=== PATIENT | female | born 1995 | race Two or more races ===

== ENCOUNTER 2024-11-29 21:23 | Observation (INO) | payer MEDICAID, SELFPAY ==
[2024-11-29 21:23] VITALS: TEMP 36.9
[2024-11-29 21:27] VITALS: BMI 38.0
[2024-11-29 21:36] VITALS: BP 109/59; PULSE 75
--- NOTE | 2024-11-29 21:44 | XR_ITS ---
Examination: Complete OB ultrasound greater than 14 weeks Date and time of exam: November 29, at 5 at 2200 hrs. Indications: Left-sided abdominal pain after falling 3 hours ago Findings: Viable intrauterine single fetus with single amniotic sac presentation transverse head maternal right Cardiac motion 148 BPM Placenta posterior grade 2 Umbilical cord insertion 3 vessel seen Amniotic fluid index 19.5 cm Cervix 4.5 cm Ovaries obscured by bowel gas. Composite estimated gestational age based on BPD, head circumference, abdominal circumference, femur length is 21 weeks 4 days Estimated weight 449 g. Survey of intracranial anatomy, spinal anatomy, abdominal anatomy, four-chamber heart performed with no abnormalities identified. Impression: Viable intrauterine gestation transverse presentation Placenta posterior grade 2 no abruption.
[2024-11-29 22:11] VITALS: BP 109/59; PULSE 75; RESP 18; RESP 99; TEMP 36.8
[2024-11-29 22:38] VITALS: BMI 37.5
== END 2024-11-29 23:49 | disposition home or self-care (01) ==
PROVIDERS: Admitting Provider Obstetrics & Gynecology; Visit Provider Obstetrics & Gynecology
DX: Z34.82 Encounter for supervision of other normal pregnancy, second trimester (principal); Z3A.21 21 weeks gestation of pregnancy
CPT/HCPCS: 59899; 76805

== ENCOUNTER 2025-01-12 08:45 | Observation (INO) | payer MEDICAID, SELFPAY ==
[2025-01-12] VITALS (33 sets, daily range): BP systolic 89–117; BP diastolic 51–72; PULSE 61–74; RESP 18–99; TEMP 36.7; O2SAT 97–99; BMI 35.6
--- NOTE | 2025-01-12 09:28 | XR_ITS ---
Examination: Complete OB ultrasound greater than 14 weeks Date and time of exam: January 12, 2025 1010 hours INDICATIONS: Limited care Findings: Viable intrauterine single fetus with single amniotic sac presentation cephalic Cardiac motion evident Placenta posterior grade 1 Umbilical cord insertion seen Amniotic fluid 20.2 cm spine maternal left Cervix 3.97 cm Ovaries obscured by bowel gas. Composite estimated gestational age based on BPD, head circumference, abdominal circumference, femur length is 29 weeks 6 days Estimated weight 1452 g. Survey of intracranial anatomy, spinal anatomy, abdominal anatomy, four-chamber heart performed with no abnormalities identified. Impression: Viable intrauterine gestation cephalic presentation Estimated gestational age 29 weeks 6 days.
[2025-01-12 10:12] LABS: Collection Type, Urine Clean Catch
[2025-01-12 10:19] LABS: Basophils % (Auto) 0 % (0-2.5); Eosinophils # (Auto) 0.1 Thou/mm3 (0.0-0.5); Eosinophils % (Auto) 0 % (0-10); Hematocrit 33.5 % (36.0-46.0); Hemoglobin 11.8 g/dL (12.0-16.0); Immature Granulocytes % (Auto) 1 % (0-0); Immature Granulocytes Auto 0.07 Thou/mm3 (0.00-0.00); Lymphocytes # (Auto) 1.4 Thou/mm3 (1.0-4.8); Lymphocytes % (Auto) 10 % (10-50); Mean Corpuscular HGB Conc 35.2 g/dl (31.0-37.0); Mean Corpuscular Hemoglobin 30.7 pg (25.0-35.0); Mean Corpuscular Volume 87 fL (80-100); Monocytes # (Auto) 0.7 Thou/mm3 (0.0-0.8); Monocytes % (Auto) 5 % (0-12); Neutrophils # (Auto) 11.4 Thou/mm3 (1.8-7.7); Neutrophils % (Auto) 84 % (37-80); Nucleated Red Blood Cell % 0 /100 WBC (0); Platelet Count 210 Thou/mm3 (140-440); RDW Standard Deviation 42.3 fL (36.4-46.3); Red Blood Count 3.84 Miln/mm3 (4.00-5.20); White Blood Count 13.6 Thou/mm3 (3.6-11.0)
[2025-01-12 10:21] LABS: Bilirubin,Urine Negative (Negative); Blood,Urine Trace (Negative); Clarity,Urine Clear (Clear/Hazy); Color,Urine Yellow (Lt Yel-Yel); Glucose, Urine Negative (Negative); Ketones,Urine Negative (Negative); Leukocyte Esterase,Urine Negative (Negative); Nitrite,Urine Negative (Negative); PH,Urine 7.5 (5.0-7.0); Protein,Urine Negative (Neg - Trace); RBC,Urine 5 /hpf (0-3); Squamous Epithelial Cell,Urine 2 /hpf (0-5); Urobilinogen,Urine Negative mg/dL (0.0-1.0); WBC,Urine 4 /hpf (0-5)
[2025-01-12] MEDS: RINGERS LACTATED 1000 ML 1,000 ML 999 ML IV (10:22)
[2025-01-12 10:55] LABS: Hepatitis B Surface Antigen Non Reactive (Non React); Rubella, IgG Antibody Reactive (Immune)
[2025-01-12 11:11] LABS: HIV (1&2) Antibody Rapid Non-Reactive
[2025-01-12 11:11] LABS: Syphilis Reactive (Nonreactive)
[2025-01-12 11:12] LABS: MHATP/TP-PA* See Sep Rpt
[2025-01-12 11:24] LABS: Hepatitis C Antibody Non Reactive (Non React)
[2025-01-12 11:49] LABS: Amphetamine/Metham Scrn,Ur OB Negative (Negative); Benzoylecgonine Screen, Ur OB Negative (Negative); Opiate Screen,Urine OB Negative (Negative); THC Screen,Urine OB Negative (Negative)
--- NOTE | 2025-01-12 13:06 | PC.NURSE ---
1235- HARJIT Sampson called and report given on labs and u/s pending report. Pt to follow up with Brittney quinones per Dr. George.
== END 2025-01-12 12:50 | disposition home or self-care (01) ==
PROVIDERS: Admitting Provider Obstetrics & Gynecology; Visit Provider Obstetrics & Gynecology
DX: O26.893 Other specified pregnancy related conditions, third trimester (principal); Z3A.29 29 weeks gestation of pregnancy; R10.2 Pelvic and perineal pain
CPT/HCPCS: 36415; 59025; 59899; 76805; 80307; 81001; 85025; 86703; 86762; 86780; 86803; 86850; 86900; 86901; 87086; 87340; J7120

== ENCOUNTER 2025-01-12 13:13 | Outpatient (AMB) | payer MEDICAID, SELFPAY ==
[2025-01-12 13:37] VITALS: BP 94/57; PULSE 74; RESP 14; TEMP 36.6; O2SAT 98; BMI 35.5
--- NOTE | 2025-01-12 13:37 | OBCLNT_ITS ---
Vital Signs 01/12/25 13:37 Height 1.55 m Height Method Measured Weight 85.275 kg Weight Measurement Method Standing Scale BMI 35.5 BP 94/57 L Blood Pressure Source Automatic Cuff Blood Pressure Location Left Upper Arm Position Sitting Respiration 14 Pulse 74 Pulse Source Monitor Temp 97.9 F Temp Source Oral Pulse Oximetry (%) 98 Oxygen Delivery Method Room Air Allergies/Home Meds Allergies & Medications Allergies No Known Allergies Allergy (Verified 01/12/25 13:39) Medication Reconciliation vitamins-iron fumarate 27 mg iron-folic acid 0.8 mg tablet ( Vitamin) 1 tab PO QDAY 10/29/18 [History Confirmed 01/12/25] nifedipine 10 mg capsule 10 mg PO TID 5 days #15 caps 01/12/25 [Rx Confirmed 01/12/25] Intake Visit Data Collection New Patient or Established: Established Patient (seen at [facility] within 3 years) Reason for Visit:: INITIAL CARE Seen by Clinical Staff ONLY (RN/MA): No Unemployment Insurance Director Required: No Do You Feel Safe at Home: Yes Authorities Contacted: N/A PCP or OBGYN visit in last 3 months: No Hx Now: Yes Last menstrual period: 07/01/24 Pain Present Currently: Yes Pain Location: Abdomen (LOWER ABDOMINAL ) Pain Scale Used: Hyde-Younger/Numerical Pain scale:: 5 Smoking Status Smoking Status: Never smoker Questionnaires Covid-19 Vaccine Questionnaire Has patient been vacinated for Covid-19 Have you been vacinated for Covid-19: No PHQ-9 PHQ-2 Over the last 2 weeks, how often have you been bothered by any of the following problems? 1. Little interest or pleasure in doing things: not at all 2. Feeling down, depressed, or hopeless: not at all Total score: 0 PHQ-9 3. Trouble falling or staying asleep, or sleeping too much: Not at all 4. Feeling tired or having little energy: Not at all 5. Poor appetite or overeating: Not at all 6. Feeling bad about yourself - or that you are a failure or have let yourself or your family down: Not at all 7. Trouble concentrating on things, such as reading the newspaper or watching television: Not at all 8. Moving or speaking so slowly that other people could have noticed? - Or the opposite - being so fidgety or restless that you have been moving around a lot more than usual: not at all 9. Thoughts that you would be better off or of hurting yourself in some way: Not at all Total score: 0 Source: Developed by Drs. Naveen Alex, Marcia Mcclellan, Edward Buchanan and colleagues, with an educational holly from [employer]. Depression screen completed yes Social History Living Situation History Marital Status: Single Lives With: Family Housing: House Tobacco History Smoking Status: Never smoker Second Hand Smoke Exposure: No Alcohol History Alcohol Intake: Never Domestic Abuse History Do You Feel Safe at Home: Yes Past Medical History Past Medical History Have you ever been diagnosed with any of the following: Cardiology Problems Congestive Heart Failure: No Respiratory Problems Chronic Obstructive Pulmonary Disease (COPD): No Tuberculosis: No Smoking: No Smoking Exposure: No Tobacco Use: No Stomache/Intestinal Problems Hepatitis: No Colorectal Cancer: No Genital/Urinary Problems Renal Disease: No Reproductive Problems Breast Cancer: No Previous Pregnancies: Yes Musculoskeletal Problems Bone Cancer: No Carpal Tunnel Syndrome: No Head,Eye,Nose,Throat Problems Cataracts: No Endocrine Problems Diabetes Mellitus Type 1: No Diabetes Mellitus Type 2: No Other Problems Hospitalization: Yes (CHILDBIRTH) Down Syndrome: No Developmental Delay: No Shingles: No Falls: No Blood Transfusions: No Blood Transfusion Reaction: No Anesthesia Reactions: No Organ Transplant: No Chemotherapy: No Radiation Therapy: No Hyperbaric Therapy: No MRSA: No VRSA: No Vancomycin-Resistant Enterococci: No Human Immunodeficiency Virus (HIV): No Chicken Pox: No Measles: No Mumps: No Rubella (Maltese Measles): No Pertussis: No Clostridium Difficile: No Cancer: No Cervical Cancer: No Lung Cancer: No Ovarian Cancer: No Surgical History Hysterectomy: No Thyroidectomy: No History of Present Illness HPI Narrative 29 yo for OBI. patient was sent for labor floor because screen + for RPR. treated today for PTL with IV hydration and sent home on Nifedipine 10 mg TID and bedrest. fetus active. no bleeding,no leaking. LMP 07/01/24. sono 11/29/24, fetus was 21w4, EDC 04/08/25. no PMH,NO social habit,no surgery. fetus active. labs were drawn OB Initial Visit OB Flowsheet OB Flowsheet Initial Weight: Not Recorded Date -?-?-?-?-?-?-?-?-?-?-?-?- EGA Weight Edema CTX Effacement BP Fundal ht Pres Dilation Effacement Station Visit Note Alb Glu FHR Mov 01/12/25 -?-?-?-?-?-?-?-?-?-?-?-?- 27w 6d 85.275 kg absent occasional 94/57 28 unknow n 29 yo IUP 27w6 with PTL. Treated in L&D with IV hydration. dc home on Nifedipine 10mg tid, increase fluid and rest. order 1 hr gtt, HA1c, NIPT and carrier screen. schedule MFM for anatomy scan, NUSWAB for GC/ct, ptl precaution, rtc 6 days for RPR results and f/u 145 active Menstrual History Menstrual reliability: definite Flow: normal Menstrual regularity: regular Monthly: Yes Age at menarche: 12 On control pills at conception: No Associated symptoms (LMP): Reports fatigue OB History : 3 Para: 2 # of Living Children: 2 Delivery History 1st : Child's name: NICOLAS date: 11/05/18 sex: male Delivery type: vaginal History of depression before or after : No 2nd : Child's name: ANDREA date: 04/02/20 sex: male Delivery type: vaginal History of depression before or after : No Infection History & Risk Evaluation History of STDs: none HIV risk evaluation: low risk Hepatitis B risk evaluation: low risk Patient or partner has history of Genital Herpes: No Genetic Screening & History Genetic Screening/Teratology Counseling - Includes patient, baby's father, or anyone in either family with: 1. Patient's age 35 years or older as of estimated date of delivery: No 2. Thalassemia (Sami, Irish, Mediterranean, or Background); MCV less than 80: No 3. Neural Tube Defect (Meningomyelocele, Spina Bifida, or Anencephaly): No 4. Congenital Heart Defect: No 5. Down Syndrome: No 6. Fan-Sachs (Ashkenazi Episcopal, Cajun, Yoruba [place]): No 7. Linda Disease (Ashkenazi Episcopal): No 8. Familial Dysautonomia (Ashkenazi Episcopal): No 9. Sickle Cell Disease or Trait (): No 10. Hemophilia or other blood disorders: No 11. Muscular Dystrophy: No 12. Cystic Fibrosis: No 13. Hastings's Chorea: No 14. Mental Retardation/Autism: No 15. Other inherited genetic or chromosomal disorder: No 16. Maternal Metabolic Disorder (EG,TYPE 1 Diabetes, PKU): No 17. Patient or baby's father had a child with defects not listed above: No 18. Recurrent loss or a stillbirth: No 19. Medications (including supplements, vitamins, herbs or otc drugs)/illicit/recreational drugs/alcohol since last menstrual period: No 20. Any other: No Infection History 1. Live with someone with TB or exposed to TB: No 2. Rash or viral illness since last menstrual period: No 3. Hepatitis B,C: No Other (see comments) Source: [employer] Review of Systems Review of Systems Systems Reviewed: All systems reviewed, normal except as documented Constitutional Constitutional: Reports fatigue Endocrine Endocrine: Reports fatigue Exam Narrative Physical exam: fh: 28, [id number], +RPR in Labor General Limitations: no limitations General Appearance: alert, in no apparent distress, comfortable, cooperative, healthy appearing, well developed and well groomed Head Head exam: atraumatic, normocephalic and normal inspection Resp Respiratory exam: Present normal lung sounds bilaterally Card Cardiovascular exam: Present regular rate, normal rhythm and normal heart sounds Abdominal Abdominal exam: Present soft and normal bowel sounds Extremities Extremities exam: Present normal inspection and full ROM Psych Psychiatric exam: Present normal affect and normal mood Results Objective Laboratory: +RPR, A+,ABS-, HIV-,HC-,HBSAG-, UTOX-, , platelets normal Assessment & Plan Diagnosis / Problem List (1) Encounter for supervision of normal in multigravida in second tr imester: Status: Acute Plan Continue nifedipine 10 mg 3 times daily. Prescribed iron 325 twice daily #60. Discussed labor precautions. Increase rest and fluids. Schedule anatomy scan with MFM. NuSwab plus done today for GC and chlamydia. Schedule 1 hour GTT, hemoglobin A1c, NIPT and carrier screen. Return in 1 week follow-up on positive RPR. Discussed safe sex practices and no sex for now. Additional Plan Follow Up: 6 Days (obc/f/u lab) Office Procedures OB Clinic LOC & Office Proc's Nursing/Assessment Patient Status: Established Patient OB Clinic Nursing Assessment: Medication Reconciliation, Update PMH in EMR and Vital Signs OB Clinic Coordination of Care: Complex Care and Chronic Disease 1-5, Consent,records obtained, informed consent, Education Simp Pt/Fam, Lab and Imaging orders, Results/Orders obtained and Staff clarify orders Special Needs: Heart tones Miscellaneous Interventions: Blood/Urine Collection Established Patient Charge Established Patient Point Assignment: 165 Established Patient Point Charge: EP Level 5 (160-above)
== END 2025-01-12 13:44 | disposition home or self-care (01) ==
LOC: HODSOBC 13:13
PROVIDERS: Supervising Provider Advanced Practice Midwife; Visit Provider Advanced Practice Midwife
DX: Z34.82 Encounter for supervision of other normal pregnancy, second trimester (principal); Z3A.27 27 weeks gestation of pregnancy
CPT/HCPCS: 99215; G0463

== ENCOUNTER 2025-01-18 11:37 | Outpatient (AMB) | payer MEDICAID, SELFPAY ==
[2025-01-18 11:47] VITALS: BP 113/64; PULSE 80; RESP 18; TEMP 36.2; O2SAT 97; BMI 36.1
--- NOTE | 2025-01-18 11:47 | OBCLNT_ITS ---
Vital Signs 01/18/25 11:47 Height 1.55 m Height Method Stated Weight 86.75 kg Weight Measurement Method Standing Scale BMI 36.1 BP 113/64 Blood Pressure Source Automatic Cuff Blood Pressure Location Left Upper Arm Position Sitting Respiration 18 Pulse 80 Pulse Source Monitor Temp 97.2 F Temp Source Oral Pulse Oximetry (%) 97 Oxygen Delivery Method Room Air Allergies/Home Meds Allergies & Medications Allergies No Known Allergies Allergy (Verified 01/18/25 11:48) Medication Reconciliation vitamins-iron fumarate 27 mg iron-folic acid 0.8 mg tablet ( Vitamin) 1 tab PO QDAY 10/29/18 [History Confirmed 01/18/25] azithromycin 1 gram oral packet 1 g PO QDAY chlamydia 1 day #1 ea 01/18/25 [Rx] azithromycin 500 mg tablet 500 mg PO QDAY chlamydia 1 day #2 tabs 01/18/25 [Rx] metronidazole 500 mg tablet 500 mg PO BID 7 days #14 tabs 01/18/25 [Rx] Intake Visit Data Collection New Patient or Established: Established Patient (seen at [facility] within 3 years) Reason for Visit:: obc Seen by Clinical Staff ONLY (RN/MA): No Car Starter Required: No Do You Feel Safe at Home: Yes Authorities Contacted: N/A PCP or OBGYN visit in last 3 months: Yes Date of Last PCP or OBGYN visit: 01/12/25 Hx Now: Yes Are you currently on any form of Control: No Pain Present Currently: No Pain Scale Used: Hyde-Younger/Numerical Pain scale:: 0 Smoking Status Smoking Status: Never smoker Questionnaires Covid-19 Vaccine Questionnaire Has patient been vacinated for Covid-19 Have you been vacinated for Covid-19: Yes PHQ-9 PHQ-2 Over the last 2 weeks, how often have you been bothered by any of the following problems? 1. Little interest or pleasure in doing things: not at all 2. Feeling down, depressed, or hopeless: not at all Total score: 0 PHQ-9 3. Trouble falling or staying asleep, or sleeping too much: Not at all 4. Feeling tired or having little energy: Not at all 5. Poor appetite or overeating: Not at all 6. Feeling bad about yourself - or that you are a failure or have let yourself or your family down: Not at all 7. Trouble concentrating on things, such as reading the newspaper or watching television: Not at all 8. Moving or speaking so slowly that other people could have noticed? - Or the opposite - being so fidgety or restless that you have been moving around a lot more than usual: not at all 9. Thoughts that you would be better off or of hurting yourself in some way: Not at all Total score: 0 If you checked off any problems, how difficult have these problems made it for you to do your work, take care of things at home, or get along with other people?: not difficult at all Source: Developed by Drs. Naveen Alex, Marcia Mcclellan, Edward Buchanan and colleagues, with an educational holly from [employer]. 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 at Home: Yes Past Medical History Past Medical History Have you ever been diagnosed with any of the following: Cardiology Problems Congestive Heart Failure: No Respiratory Problems Chronic Obstructive Pulmonary Disease (COPD): No Tuberculosis: No Smoking: No Smoking Exposure: No Tobacco Use: No Stomache/Intestinal Problems Hepatitis: No Colorectal Cancer: No Genital/Urinary Problems Renal Disease: No Reproductive Problems Breast Cancer: No Previous Pregnancies: Yes Musculoskeletal Problems Bone Cancer: No Carpal Tunnel Syndrome: No Head,Eye,Nose,Throat Problems Cataracts: No Endocrine Problems Diabetes Mellitus Type 1: No Diabetes Mellitus Type 2: No Other Problems Hospitalization: Yes (CHILDBIRTH) Down Syndrome: No Developmental Delay: No Shingles: No Falls: No Blood Transfusions: No Blood Transfusion Reaction: No Anesthesia Reactions: No Organ Transplant: No Chemotherapy: No Radiation Therapy: No Hyperbaric Therapy: No MRSA: No VRSA: No Vancomycin-Resistant Enterococci: No Human Immunodeficiency Virus (HIV): No Chicken Pox: No Measles: No Mumps: No Rubella (Citizen Of [place] Measles): No Pertussis: No Clostridium Difficile: No Cancer: No Cervical Cancer: No Lung Cancer: No Ovarian Cancer: No Surgical History Hysterectomy: No Thyroidectomy: No Care OB Visit Log OB Flowsheet Initial Weight: Not Recorded Date -?-?-?-?-?-?-?-?-?-?-?-?- EGA Weight Edema CTX Effacement BP Fundal ht Pres Dilation Effacement Station Visit Note Alb Glu FHR Mov 01/12/25 -?-?-?-?-?-?-?-?-?-?-?-?- 27w 6d 85.275 kg absent occasional 94/57 28 unknow n 29 yo IUP 27w6 with PTL. Treated in L&D with IV hydration. dc home on Nifedipine 10mg tid, increase fluid and rest. order 1 hr gtt, HA1c, NIPT and carrier screen. schedule MFM for anatomy scan, NUSWAB for GC/ct, ptl precaution, rtc 6 days for RPR results and f/u 145 active 01/18/25 -?-?-?-?-?-?-?-?-?-?-?-?- 28w 5d 86.75 kg absent absent 113/64 29 for OB, partner is in [place], fetus active, compliance with Nifedipine. Denies UC today. discuss +RPR, titer 1:16, +TPA. patient denies previous hx of syphilis. health dept aware. Bicollin 2.4 mu IM. gave patient handout. discuss partner treatment, no sex, discuss safe sex, review ptl precaution, ihr gtt results pending, increase fluid, rtc 1 week Bicillin 2.4#2, schedule mfm appointment for OBC, partner is in [facility], fetus active, compliance with Nifedipine. Denies UC today. discuss +RPR, titer 1:16, +TPA. patient denies previous hx of syphilis. health dept aware. Bicollin 2.4 mu IM. gave patient handout. discuss partner treatment, no sex, discuss safe sex, review ptl precaution, ihr gtt results pending, increase fluid, rtc 1 week Bicillin 2.4#2, schedule mfm appointmentpatient tried to fainted after Bicillin 2.4 141 active PAVEL Calculator Estimated Delivery Date Method Current WG Current Estimate 04/07/25 Ultrasound #1 28w 5d Results Objective Laboratory: RPR+ Titer: 1:16 TPA+ Assessment & Plan Diagnosis / Problem List (1) Encounter for supervision of normal in multigravida in second trimester: Status: Acute (2) Syphilis affecting in second trimester: Status: Acute (3) Chlamydia: Status: Acute Plan: called patient with + chlamydia and BV results, rx for flagyl 500 bid x7 and Azithromax 1 gm to patient, ordered 1 gm Azithromax 1 gm for patient partner. instrucyted to give to partner. no sex/safe sex Plan no sex. discuss +RPR and treatment, pt handout for + stphilis given to patient in kyrgyz, stressed importance of weekly visit x3 for 3 bicillin 2.4, and advised importance of partner getting treated for + RPR. No sex, safe sex, MFM sono pending, ptl precaution, fluids. rtc 1 week Additional Plan Follow Up: 1 Week (bicillin 2.4 and OBC) Instructions: Syphilis Office Procedures OB Clinic LOC & Office Proc's Nursing/Assessment Patient Status: Established Patient OB Clinic Nursing Assessment: BP Monitoring, Medication Reconciliation, Update PMH in EMR and Vital Signs OB Clinic Coordination of Care: Consent,records obtained, informed consent, Education Simp Pt/Fam, Results/Orders obtained and Staff clarify orders Special Needs: Heart tones Established Patient Charge Established Patient Point Assignment: 110 Established Patient Point Charge: EP Level 3 (80-115) Injection/Vaccine Admin SQ Im Injection: Yes Office Meds penicillin G benzathine 2,400,000 unit/4 mL intramuscular syringe Performing Provider: Elizabeth Sampson CNM Performing Location: [facility] Administered by: Jacinta Branham MA on 01/18/25 13:25 Dose Route Admin Location Dispensed Lot Number Expiration Date [facility] Contract Negotiation Manager 2.4 mmu IM LG 4 mL [id number] 04/16/27 31470-163-92 Intervention Insights Comments: PT WIATED 15 MIN , PATIENT DID FEEL LIGHT HEADED PROVIDER AWARE AND PATIENT WAITED WITH PROVDER
--- NOTE | 2025-01-18 11:58 | AMB.OBVISIT ---
Vital Signs 01/18/25 11:47 Height 1.55 m Height Method Stated Weight 86.75 kg Weight Measurement Method Standing Scale BMI 36.1 BP 113/64 Blood Pressure Source Automatic Cuff Blood Pressure Location Left Upper Arm Position Sitting Respiration 18 Pulse 80 Pulse Source Monitor Temp 97.2 F Temp Source Oral Pulse Oximetry (%) 97 Oxygen Delivery Method Room Air Allergies/Home Meds Allergies & Medications Allergies No Known Allergies Allergy (Verified 01/18/25 11:48) Medication Reconciliation vitamins-iron fumarate 27 mg iron-folic acid 0.8 mg tablet ( Vitamin) 1 tab PO QDAY 10/29/18 [History Confirmed 01/18/25] Intake Visit Data Collection Do You Feel Safe at Home: Yes Smoking Status Smoking Status: Never smoker Questionnaires Covid-19 Vaccine Questionnaire Has patient been vacinated for Covid-19 Have you been vacinated for Covid-19: Yes PHQ-9 PHQ-2 Over the last 2 weeks, how often have you been bothered by any of the following problems? 1. Little interest or pleasure in doing things: not at all PHQ-9 3. Trouble falling or staying asleep, or sleeping too much: Not at all 4. Feeling tired or having little energy: Not at all 5. Poor appetite or overeating: Not at all 6. Feeling bad about yourself - or that you are a failure or have let yourself or your family down: Not at all 7. Trouble concentrating on things, such as reading the newspaper or watching television: Not at all 8. Moving or speaking so slowly that other people could have noticed? - Or the opposite - being so fidgety or restless that you have been moving around a lot more than usual: not at all Total score: 0 If you checked off any problems, how difficult have these problems made it for you to do your work, take care of things at home, or get along with other people?: not difficult at all Source: Developed by Drs. Naveen Alex, Marcia Mcclellan, Edward Buchanan and colleagues, with an educational holly from [employer]. 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 at Home: Yes Past Medical History Past Medical History Have you ever been diagnosed with any of the following: Cardiology Problems Congestive Heart Failure: No Respiratory Problems Chronic Obstructive Pulmonary Disease (COPD): No Tuberculosis: No Smoking: No Smoking Exposure: No Tobacco Use: No Stomache/Intestinal Problems Hepatitis: No Colorectal Cancer: No Genital/Urinary Problems Renal Disease: No Reproductive Problems Breast Cancer: No Previous Pregnancies: Yes Musculoskeletal Problems Bone Cancer: No Carpal Tunnel Syndrome: No Head,Eye,Nose,Throat Problems Cataracts: No Endocrine Problems Diabetes Mellitus Type 1: No Diabetes Mellitus Type 2: No Other Problems Hospitalization: Yes (CHILDBIRTH) Down Syndrome: No Developmental Delay: No Shingles: No Falls: No Blood Transfusions: No Blood Transfusion Reaction: No Anesthesia Reactions: No Organ Transplant: No Chemotherapy: No Radiation Therapy: No Hyperbaric Therapy: No MRSA: No VRSA: No Vancomycin-Resistant Enterococci: No Human Immunodeficiency Virus (HIV): No Chicken Pox: No Measles: No Mumps: No Rubella (Yi Measles): No Pertussis: No Clostridium Difficile: No Cancer: No Cervical Cancer: No Lung Cancer: No Ovarian Cancer: No Surgical History Hysterectomy: No Thyroidectomy: No Care OB Visit Log OB Flowsheet Initial Weight: Not Recorded Date <del>?</del> EGA Weight Edema CTX Effacement BP Fundal ht Pres Dilation Effacement Station Visit Note Alb Glu FHR Mov 01/12/25 <del>?</del> 27w 6d 85.275 kg absent occasional 94/57 28 unknown 29 yo IUP 27w6 with PTL. Treated in L&D with IV hydration. dc home on Nifedipine 10mg tid, increase fluid and rest. order 1 hr gtt, HA1c, NIPT and carrier screen. schedule MFM for anatomy scan, NUSWAB for GC/ct, ptl precaution, rtc 6 days for RPR results and f/u 145 active PAVEL Calculator Estimated Delivery Date Method Current WG Current Estimate 04/07/25 Ultrasound #1 28w 5d Assessment & Plan Additional Plan Instructions: Syphilis Office Procedures OB Clinic LOC & Office Proc's Nursing/Assessment Patient Status: Established Patient OB Clinic Nursing Assessment: BP Monitoring, Medication Reconciliation, Update PMH in EMR and Vital Signs OB Clinic Coordination of Care: Consent,records obtained, informed consent, Education Simp Pt/Fam, Results/Orders obtained and Staff clarify orders Special Needs: Heart tones Established Patient Charge Established Patient Point Assignment: 110 Established Patient Point Charge: EP Level 3 (80-115)
== END 2025-01-18 12:02 | disposition home or self-care (01) ==
LOC: HODSOBC 11:37
PROVIDERS: Supervising Provider Advanced Practice Midwife; Visit Provider Advanced Practice Midwife
DX: O09.893 Supervision of other high risk pregnancies, third trimester (principal); Z3A.28 28 weeks gestation of pregnancy; O98.113 Syphilis complicating pregnancy, third trimester; O98.313 Other infections with a predominantly sexual mode of transmission complicating pregnancy, third trimester; A56.8 Sexually transmitted chlamydial infection of other sites
CPT/HCPCS: 81001; 96372; 99213; J0561; G0463

== ENCOUNTER 2025-01-25 13:04 | Outpatient (AMB) | payer MEDICAID, SELFPAY ==
--- NOTE | 2025-01-25 13:18 | OBCLNT_ITS ---
Vital Signs 01/25/25 13:22 Height 1.55 m Height Method Stated Weight 86.75 kg Weight Measurement Method Standing Scale BMI 36.1 BP 110/67 Blood Pressure Source Automatic Cuff Blood Pressure Location Left Upper Arm Position Sitting Respiration 16 Pulse 77 Pulse Source Monitor Temp 97.5 F Temp Source Oral Pulse Oximetry (%) 97 Oxygen Delivery Method Room Air Allergies/Home Meds Allergies & Medications Allergies No Known Allergies Allergy (Verified 02/01/25 15:57) Medication Reconciliation vitamins-iron fumarate 27 mg iron-folic acid 0.8 mg tablet ( Vitamin) 1 tab PO QDAY 10/29/18 [History Confirmed 02/01/25] Intake Visit Data Collection New Patient or Established: Established Patient (seen at [facility] within 3 years) Reason for Visit:: CARE Seen by Clinical Staff ONLY (RN/MA): No Mirror Fabrication Supervisor Required: No Do You Feel Safe at Home: Yes Authorities Contacted: N/A PCP or OBGYN visit in last 3 months: Yes Hx Now: Yes Are you currently on any form of Control: No Pain Present Currently: No Pain Scale Used: Hyde-Youngre/Numerical Pain scale:: 0 Smoking Status Smoking Status: Never smoker Questionnaires Covid-19 Vaccine Questionnaire Has patient been vacinated for Covid-19 Have you been vacinated for Covid-19: No PHQ-9 PHQ-2 Over the last 2 weeks, how often have you been bothered by any of the following problems? 1. Little interest or pleasure in doing things: not at all 2. Feeling down, depressed, or hopeless: not at all Total score: 0 PHQ-9 3. Trouble falling or staying asleep, or sleeping too much: Not at all 4. Feeling tired or having little energy: Not at all 5. Poor appetite or overeating: Not at all 6. Feeling bad about yourself - or that you are a failure or have let yourself or your family down: Not at all 7. Trouble concentrating on things, such as reading the newspaper or watching television: Not at all 8. Moving or speaking so slowly that other people could have noticed? - Or the opposite - being so fidgety or restless that you have been moving around a lot more than usual: not at all 9. Thoughts that you would be better off or of hurting yourself in some way: Not at all Total score: 0 Source: Developed by Drs. Naveen Alex, Marcia Mcclellan, Edward Buchanan and colleagues, with an educational holly from [employer]. 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 Past Medical History: No Hx Neurological Disorders, No Hx Breast Cancer, No Hx Cardiac Disorders, No Hx Cancer, No Hx Blood Disorders, No Hx Gastrointestinal Disorders, No Hx Renal Disease, No Hx Diabetes Mellitus Type 1, No Hx Diabetes Mellitus Type 2, No Hx Tubal Ligation and No Hx Hysterectomy Care OB Visit Log OB Flowsheet Initial Weight: Not Recorded Date -?-?-?-?-?-?-?-?-?-?-?-?- EGA Weight BP Alb Glu CTX Pres Fundal ht FHR Mov Dilation Station Effacement Hx Notes Visit Note 01/12/25 -?-?-?-?-?-?-?-?-?-?-?-?- 27w 6d 85.275 kg 94/57 occasional unknown 28 1 45 active 29 yo IUP 27w6 with PTL. Treated in L&D with IV hydration. dc home on Nifedipine 10mg tid, increase fluid and rest. order 1 hr gtt, HA1c, NIPT and carrier screen. schedule MFM for anatomy scan, NUSWAB for GC/ct, ptl precaution, rtc 6 days for RPR results and f/u 01/18/25 -?-?-?-?-?-?-?-?-?-?-?-?- 28w 5d 86.75 kg 113/64 absent 29 141 act jake for OBC, partner is in [place], fetus active, compliance with Nifedipine. Denies UC today. discuss +RPR, titer 1:16, +TPA. patient denies previous hx of syphilis. health dept aware. Bicollin 2.4 mu IM. gave patient handout. discuss partner treatment, no sex, discuss safe sex, review ptl precaution, ihr gtt results pending, increase fluid, rtc 1 week Bicillin 2.4#2, schedule mfm appointment for OBC, partner is in [place], fetus active, compliance with Nifedipine. Denies UC today. discuss +RPR, titer 1:16, +TPA. patient denies previous hx of syphilis. health dept aware. Bicollin 2.4 mu IM. gave patient handout. discuss partner treatment, no sex, discuss safe sex, review ptl precaution, ihr gtt results pending, increase fluid, rtc 1 week Bicillin 2.4#2, schedule mfm appointmentpatient tried to fainted after Bicillin 2.4 01/25/25 -?-?-?-?-?-?-?-?-?-?-?-?- 29w 5d 86.75 kg 110/67 absent cephalic 30 141 active fetus active, reports compliance with zithromax 1 gm PM, partner has not notified partner. NO sex/safe sex reviewed, [facility], increase fluid and rest, ptl precaution. flagyl 500 bid x7. rtc 1 week bicillin 2.4 #3 02/01/25 -?-?-?-?-?-?-?-?-?-?-?-?- 30w 5d 88.904 kg 105/62 absent cephalic 32 143 active Reports good movement. Denies labor complaints. Patient is not sexually active. Patient reports that she when her is back in the house she will have him get tested and treated for both syphilis and chlamydia. Denies labor complaints. Discussed NIPT with patient. Patient got Tdap last visit. MFM visit is still pending insurance. Return in 2 weeks visit Reports good movement. Denies labor complaints. Patient is not sexually active. Patient reports that she when her is back in the house she will have him get tested and treated for both syphilis and chlamydia. Denies labor complaints. Discussed NIPT with patient. Patient got Tdap last visit. MFM visit is still pending insurance. Return in 2 weeks OBC. Bicillin 2.4U IM #3 today, contineu to practice safe sex and condom use PAVEL Calculator Estimated Delivery Date Method Current WG Current Estimate 04/07/25 Ultrasound #1 30w 6d Comments: 29 yo . sono: 16: 21w4. EDC 04/13/25. +RPR: +TPA: titer: 1:16 Treated x 2 bicillin 2.4. next TX is 1 week. +CT/GC-: tx with zithromax 1 gm. + BV: treated with flagyl. A+,ABS-,, RUB imm, hbsag-,hiv-,HC-,UT- Notes Visit Date: 01/25/25 Last Updated by: Elizabeth Sampson CNM 29 yo , Office Procedures OB Clinic LOC & Office Proc's Nursing/Assessment Patient Status: Established Patient OB Clinic Nursing Assessment: Medication Reconciliation, Update PMH in EMR and Vital Signs OB Clinic Coordination of Care: Complex Care and Chronic Disease 1-5, Consent,records obtained, informed consent, Education Simp Pt/Fam, Lab and Imaging orders, Results/Orders obtained and Staff clarify orders Special Needs: Heart tones Miscellaneous Interventions: Blood/Urine Collection Established Patient Charge Established Patient Point Assignment: 165 Established Patient Point Charge: EP Level 5 (160-above) Injection/Vaccine Admin SQ Im Injection: Yes Admin 1st Vaccine: Yes Office Meds Bicillin L-A 2,400,000 unit/4 mL intramuscular syringe Performing Provider: Elizabeth Sampson CNM Performing Location: [facility] Administered by: Jacinta Branham MA on 01/25/25 13:56 Dose Route Admin Location Dispensed Lot Number Expiration Date [facility] Field Care Manager 2.4 unit IM RG 4 mL [id number] 04/16/27 88201-433-96 [place] [employer] Immunizations diphth,pertus(acell),tetanus 2.5 Lf unit-8 mcg-5 Lf/0.5mL IM syringe Performing Provider: Elizabeth Sampson CNM Performing Location: [facility] Administered by: Jacinta Branham MA on 01/25/25 13:56 Dose Route Admin Location Dispensed Lot Number Expiration Date [facility] Field Care Manager 0.5 mL IM Right Deltoid 0.5 mL [id number] 12/05/26 29494-641-[facility] Given Date VIS Provided VIS Publication Date 01/25/25 Single Vaccine 24 Eligibility Eligibility Date Funding Source Public Non-[facility] Assessment & Plan Diagnosis / Problem List (1) Encounter for supervision of normal in multigravida in second trimester: Status: Acute (2) Syphilis affecting in second trimester: Status: Acute Plan TDAP and bicillin 2.4 IM today. re-order flagyl 500 bid x7. no sex, urged patient to notify partner so he can get treated. discuss safe sex. ptl precaution, increase fluid,rest. MFM appointment pending approval/[facility]. RTC 1 week Bicillin 2.4 #3 Additional Plan Follow Up: 1 Week (bicillin 2.4 #3 and OBC)
[2025-01-25 13:22] VITALS: BP 110/67; PULSE 77; RESP 16; TEMP 36.4; O2SAT 97; BMI 36.1
[2025-01-25 14:18] LABS: Bilirubin,Urine Clinitek Negative (Negative); Blood,Urine Clinitek Trace-intact (Negative); Glucose, Urine Clinitek Negative (Negative); Ketones,Urine Clinitek Negative (Negative); Leukocyte Esterase,Urine Clin Negative (Negative); Nitrite,Urine Clinitek Negative (Negative); PH,Urine Clinitek 6.5 (5.0-7.0); Protein,Urine Clinitek Negative (Neg - Trace); Specific Gravity,Urine Clin 1.025 (1.001-1.030); Urobilinogen,Urine Clinitek 0.2 mg/dL (0.0-1.0)
== END 2025-01-25 13:55 | disposition home or self-care (01) ==
LOC: HODSOBC 13:04
PROVIDERS: PCP Advanced Practice Midwife; Referring Provider Advanced Practice Midwife; Supervising Provider Obstetrics & Gynecology; Visit Provider Advanced Practice Midwife
DX: O09.893 Supervision of other high risk pregnancies, third trimester (principal); Z3A.30 30 weeks gestation of pregnancy; O98.113 Syphilis complicating pregnancy, third trimester; A53.9 Syphilis, unspecified; Z23 Encounter for immunization
CPT/HCPCS: 81001; 90471; 90472; 90715; 96372; 99215; J0561; G0463

== ENCOUNTER 2025-02-01 15:49 | Outpatient (AMB) | payer MEDICAID, SELFPAY ==
[2025-02-01 15:56] VITALS: BP 105/62; PULSE 74; RESP 18; TEMP 36.2; O2SAT 97; BMI 37.0
--- NOTE | 2025-02-01 15:56 | OBCLNT_ITS ---
Vital Signs 02/01/25 15:56 Height 1.55 m Height Method Stated Weight 88.904 kg Weight Measurement Method Standing Scale BMI 37.0 BP 105/62 Blood Pressure Source Automatic Cuff Blood Pressure Location Left Upper Arm Position Sitting Respiration 18 Pulse 74 Pulse Source Monitor Temp 97.2 F Temp Source Oral Pulse Oximetry (%) 97 Oxygen Delivery Method Room Air Allergies/Home Meds Allergies & Medications Allergies No Known Allergies Allergy (Verified 02/01/25 15:57) Medication Reconciliation vitamins-iron fumarate 27 mg iron-folic acid 0.8 mg tablet ( Vitamin) 1 tab PO QDAY 10/29/18 [History Confirmed 02/01/25] Intake Visit Data Collection New Patient or Established: Established Patient (seen at [facility] within 3 years) Reason for Visit:: OBC/Nataly 2.4 Seen by Clinical Staff ONLY (RN/MA): No Volunteer Fire 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 1. Little interest or pleasure in doing things: not at all 2. Feeling down, depressed, or hopeless: not at all Total score: 0 PHQ-9 3. Trouble falling or staying asleep, or sleeping too much: Not at all 4. Feeling tired or having little energy: Not at all 5. Poor appetite or overeating: Not at all 6. Feeling bad about yourself - or that you are a failure or have let yourself or your family down: Not at all 7. Trouble concentrating on things, such as reading the newspaper or watching television: Not at all 8. Moving or speaking so slowly that other people could have noticed? - Or the opposite - being so fidgety or restless that you have been moving around a lot more than usual: not at all 9. Thoughts that you would be better off or of hurting yourself in some way: Not at all Total score: 0 If you checked off any problems, how difficult have these problems made it for you to do your work, take care of things at home, or get along with other people?: not difficult at all Source: Developed by Drs. Naveen Alex, Marcia Mcclellan, Edward Buchanan and colleagues, with an educational holly from [employer]. 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 Past Medical History: No Hx Neurological Disorders, No Hx Breast Cancer, No Hx Cardiac Disorders, No Hx Cancer, No Hx Blood Disorders, No Hx Gastrointestinal Disorders, No Hx Renal Disease, No Hx Diabetes Mellitus Type 1, No Hx Diabetes Mellitus Type 2, No Hx Tubal Ligation and No Hx Hysterectomy Care OB Visit Log OB Flowsheet Initial Weight: Not Recorded Date -?-?-?-?-?-?-?-?-?-?-?-?- EGA Weight Edema CTX Effacement BP Fundal ht Pres Dilation Effacement Station Visit Note Alb Glu FHR Mov 01/12/25 -?-?-?-?-?-?-?-?-?-?-?-?- 27w 6d 85.275 kg absent occasional 94/57 28 unknow n 29 yo IUP 27w6 with PTL. Treated in L&D with IV hydration. dc home on Nifedipine 10mg tid, increase fluid and rest. order 1 hr gtt, HA1c, NIPT and carrier screen. schedule MFM for anatomy scan, NUSWAB for GC/ct, ptl precaution, rtc 6 days for RPR results and f/u 145 active 01/18/25 -?-?-?-?-?-?-?-?-?-?-?-?- 28w 5d 86.75 kg absent absent 113/64 29 for OBC, partner is in [place], fetus active, compliance with Nifedipine. Denies UC today. discuss +RPR, titer 1:16, +TPA. patient denies previous hx of syphilis. health dept aware. Bicollin 2.4 mu IM. gave patient handout. discuss partner treatment, no sex, discuss safe sex, review ptl precaution, ihr gtt results pending, increase fluid, rtc 1 week Bicillin 2.4#2, schedule mfm appointment for OBC, partner is in [place], fetus active, compliance with Nifedipine. Denies UC today. discuss +RPR, titer 1:16, +TPA. patient denies previous hx of syphilis. health dept aware. Bicollin 2.4 mu IM. gave patient handout. discuss partner treatment, no sex, discuss safe sex, review ptl precaution, ihr gtt results pending, increase fluid, rtc 1 week Bicillin 2.4#2, schedule mfm appointmentpatient tried to fainted after Bicillin 2.4 141 active 01/25/25 -?-?-?-?-?-?-?-?-?-?-?-?- 29w 5d 86.75 kg absent absent 110/67 30 cephalic fetus active, reports compliance with zithromax 1 gm PM, partner has not notified partner. NO sex/safe sex reviewed, MFM appointment pending, [facility], increase fluid and rest, ptl precaution. flagyl 500 bid x7. rtc 1 week bicillin 2.4 #3 141 active 02/01/25 -?-?-?-?-?-?-?-?-?-?-?--?- 30w 5d 88.904 kg absent absent 105/62 32 cephalic Reports good movement. Denies labor complaints. Patient is not sexually active. Patient reports that she when her is back in the house she will have him get tested and treated for both syphilis and chlamydia. Denies labor complaints. Discussed NIPT with patient. Patient got Tdap last visit. MFM visit is still pending insurance. Return in 2 weeks visit Reports good movement. Denies labor complaints. Patient is not sexually active. Patient reports that she when her is back in the house she will have him get tested and treated for both syphilis and chlamydia. Denies labor complaints. Discussed NIPT with patient. Patient got Tdap last visit. MFM visit is still pending insurance. Return in 2 weeks OBC. Bicillin 2.4U IM #3 today, contineu to practice safe sex and condom use 143 active PAVEL Calculator Estimated Delivery Date Method Current WG Current Estimate 04/07/25 Ultrasound #1 30w 5d Notes Visit Date: 01/25/25 Last Updated by: Elizabeth Sampson CNM 29 yo , Office Procedures OB Clinic LOC & Office Proc's Nursing/Assessment Patient Status: Established Patient OB Clinic Nursing Assessment: Medication Reconciliation, Update PMH in EMR and Vital Signs OB Clinic Coordination of Care: Education Complex Pt/Fam, Consent,records obtained, informed consent, Education Simp Pt/Fam and Staff clarify orders Special Needs: Heart tones Established Patient Charge Established Patient Point Assignment: 110 Established Patient Point Charge: EP Level 3 (80-115) Injection/Vaccine Admin SQ Im Injection: Yes Office Meds Bicillin L-A 2,400,000 unit/4 mL intramuscular syringe Performing Provider: Elizabeth Sampson CNM Performing Location: [facility] Administered by: Erin Diaz MA on 02/01/25 16:36 Dose Route Admin Location Dispensed Lot Number Expiration Date [facility] Formula Maker 2.4 unit IM RIGHT GLUTE 4 mL [id number] 10/17/24 64298-169-56 [employer] Assessment & Plan Diagnosis / Problem List (1) Syphilis affecting in second trimester: Status: Acute (2) Encounter for supervision of normal in multigravida in second trimester: Status: Acute Plan Bicillin 2.4 U IM #3 today. safe sex practice reviewed, remind patient to have partner treated for both syphilis and chlamydia. PTL precaution. mfm sono pending. continue PNV. rtc 2 week Additional Plan Follow Up: 2 Weeks (obc)
== END 2025-02-01 16:01 | disposition home or self-care (01) ==
LOC: HODSOBC 15:49
PROVIDERS: PCP Advanced Practice Midwife; Referring Provider Advanced Practice Midwife; Supervising Provider Obstetrics & Gynecology; Visit Provider Advanced Practice Midwife
DX: O09.893 Supervision of other high risk pregnancies, third trimester (principal); Z3A.30 30 weeks gestation of pregnancy; O98.113 Syphilis complicating pregnancy, third trimester; A53.9 Syphilis, unspecified
CPT/HCPCS: 90471; 96372; 99213; J0561; G0463

== ENCOUNTER 2025-02-23 16:00 | Outpatient (AMB) | payer MEDICAID, SELFPAY ==
[2025-02-23 16:16] VITALS: BP 106/67; PULSE 73; RESP 17; TEMP 36.6; O2SAT 98; BMI 36.8
--- NOTE | 2025-02-23 16:16 | AMB.OBVISIT ---
Vital Signs 02/23/25 16:16 Height 1.55 m Height Method Stated Weight 88.451 kg Weight Measurement Method Standing Scale BMI 36.8 BP 106/67 Blood Pressure Source Automatic Cuff Blood Pressure Location Right Upper Arm Position Sitting Respiration 17 Pulse 73 Pulse Source Monitor Temp 97.8 F Temp Source Temporal Artery Scan Pulse Oximetry (%) 98 Oxygen Delivery Method Room Air Allergies/Home Meds Allergies & Medications Allergies No Known Allergies Allergy (Verified 02/01/25 15:57) Intake Visit Data Collection New Patient or Established: Established Patient (seen at [facility] within 3 years) Reason for Visit:: OBC Seen by Clinical Staff ONLY (RN/MA): No Graduate Teaching Assistant Required: No Do You Feel Safe at Home: Yes Authorities Contacted: N/A PCP or OBGYN visit in last 3 months: Yes Date of Last PCP or OBGYN visit: 02/01/25 Hx Now: Yes Pain Present Currently: Yes Pain Location: Head Pain Scale Used: Hyde-Younger/Numerical Pain scale:: 7 Smoking Status Smoking Status: Never smoker Questionnaires Covid-19 Vaccine Questionnaire Has patient been vacinated for Covid-19 Have you been vacinated for Covid-19: Yes PHQ-9 PHQ-2 Over the last 2 weeks, how often have you been bothered by any of the following problems? 1. Little interest or pleasure in doing things: several days 2. Feeling down, depressed, or hopeless: several days Total score: 2 PHQ-9 3. Trouble falling or staying asleep, or sleeping too much: Not at all 4. Feeling tired or having little energy: Not at all 5. Poor appetite or overeating: Not at all 6. Feeling bad about yourself - or that you are a failure or have let yourself or your family down: Not at all 7. Trouble concentrating on things, such as reading the newspaper or watching television: Not at all 8. Moving or speaking so slowly that other people could have noticed? - Or the opposite - being so fidgety or restless that you have been moving around a lot more than usual: not at all 9. Thoughts that you would be better off or of hurting yourself in some way: Not at all Total score: 2 If you checked off any problems, how difficult have these problems made it for you to do your work, take care of things at home, or get along with other people?: not difficult at all Source: Developed by Drs. Naveen Alex, Marcia Mcclellan, Edward Buchanan and colleagues, with an educational holly from [employer]. 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 Treated in L&D with IV hydration. dc home on Nifedipine 10mg tid, increase fluid and rest. order 1 hr gtt, HA1c, NIPT and carrier screen. schedule MFM for anatomy scan, NUSWAB for GC/ct, ptl precaution, rtc 6 days for RPR results and f/u 01/18/25 <del>?</del> 28w 5d 86.75 kg 113/64 absent 29 141 active for OBC, partner is in [place], fetus active, compliance with Nifedipine. Denies UC today. discuss +RPR, titer 1:16, +TPA. patient denies previous hx of syphilis. health dept aware. Bicollin 2.4 mu IM. gave patient handout. discuss partner treatment, no sex, discuss safe sex, review ptl precaution, ihr gtt results pending, increase fluid, rtc 1 week Bicillin 2.4#2, schedule mfm appointment for OBC, partner is in [place], fetus active, compliance with Nifedipine. Denies UC today. discuss +RPR, titer 1:16, +TPA. patient denies previous hx of syphilis. health dept aware. Bicollin 2.4 mu IM. gave patient handout. discuss partner treatment, no sex, discuss safe sex, review ptl precaution, ihr gtt results pending, increase fluid, rtc 1 week Bicillin 2.4#2, schedule mfm appointmentpatient tried to fainted after Bicillin 2.4 01/25/25 <del>?</del> 29w 5d 86.75 kg 110/67 absent cephalic 30 141 active fetus active, reports compliance with zithromax 1 gm PM, partner has not notified partner. NO sex/safe sex reviewed, MFM appointment pending, [facility], increase fluid and rest, ptl precaution. flagyl 500 bid x7. rtc 1 week bicillin 2.4 #3 02/01/25 <del>?</del> 30w 5d 88.904 kg 105/62 absent cephalic 32 143 active Reports good movement. Denies labor complaints. Patient is not sexually active. Patient reports that she when her is back in the house she will have him get tested and treated for both syphilis and chlamydia. Denies labor complaints. Discussed NIPT with patient. Patient got Tdap last visit. MFM visit is still pending insurance. Return in 2 weeks visit Reports good movement. Denies labor complaints. Patient is not sexually active. Patient reports that she when her is back in the house she will have him get tested and treated for both syphilis and chlamydia. Denies labor complaints. Discussed NIPT with patient. Patient got Tdap last visit. MFM visit is still pending insurance. Return in 2 weeks OBC. Bicillin 2.4U IM #3 today, contineu to practice safe sex and condom use 02/23/25 <del>?</del> 33w 6d 88.451 kg 106/67 occasional cephalic 33 145 active reports good movement. denies LOF,VB,UC, mfm appointment 02/26 GC/CT LIYA today, get 3rd tri lab, discuss fkc bid.discuss PTL precaution, increase fluid. keep mfm appt 02/26, rtc 1 week obc PAVEL Calculator Estimated Delivery Date Method Current WG Current Estimate 04/07/25 Ultrasound #1 33w 6d Notes Visit Date: 02/23/25 Last Updated by: Elizabeth Sampson CNM 29 yo . no dates. sono 11/29/24: IUP 21w4. EDC: 04/07/25. A+,abs-, rpr;;Reactive,titer: 1:16. treated with Bicillin 2.4 s3, partner not treated. GC-/CT+. treated with zithromax. BV+/tx with flagyl, hbsag-,HIV-,HC-. NIPT and carrier screen-. treated with nifedipine 10mg tid for PTL Visit Date: 01/25/25 Last Updated by: Elizabeth Sampson CNM 29 yo , Office Procedures OB Clinic LOC & Office Proc's Nursing/Assessment Patient Status: Established Patient OB Clinic Nursing Assessment: Medication Reconciliation, Update PMH in EMR and Vital Signs OB Clinic Coordination of Care: Complex Care and Chronic Disease 1-5, Consent,records obtained, informed consent, Education Simp Pt/Fam, Lab and Imaging orders and Staff clarify orders Special Needs: Heart tones Miscellaneous Interventions: Culture Specimen Collection Established Patient Charge Established Patient Point Assignment: 145 Established Patient Point Charge: EP Level 4 (120-155) Assessment & Plan Diagnosis / Problem List (1) Chronic candidiasis of vulva and vagina: Status: Acute (2) Chlamydia: Status: Acute (3) Encounter for supervision of high risk in third trimester, antepartum: Status: Acute Plan keep mfm appointment 02/26, continue PNV, LIYA for +CTtoday, nuswab plus today. ordered 3rd tri lab, discuss ptl precaution, hydrate, discuss fkc bid and parameters. Discuss er precaution. rtc 3 week obc Additional Plan Follow Up: 3 Weeks (obc)
== END 2025-02-23 16:34 | disposition home or self-care (01) ==
LOC: HODSOBC 16:00
PROVIDERS: PCP Advanced Practice Midwife; Referring Provider Advanced Practice Midwife; Supervising Provider Advanced Practice Midwife; Visit Provider Advanced Practice Midwife
DX: O09.893 Supervision of other high risk pregnancies, third trimester (principal); Z3A.33 33 weeks gestation of pregnancy; O23.593 Infection of other part of genital tract in pregnancy, third trimester; B37.32 Chronic candidiasis of vulva and vagina; O98.313 Other infections with a predominantly sexual mode of transmission complicating pregnancy, third trimester; A56.8 Sexually transmitted chlamydial infection of other sites
CPT/HCPCS: 99214; G0463

== ENCOUNTER 2025-03-02 14:57 | Outpatient (AMB) | payer MEDICAID, SELFPAY ==
[2025-03-02 15:26] VITALS: BP 116/67; PULSE 81; RESP 16; TEMP 36.2; O2SAT 98; BMI 36.9
--- NOTE | 2025-03-02 15:26 | OBCLNT_ITS ---
Vital Signs 03/02/25 15:26 Height 1.55 m Height Method Stated Weight 88.677 kg Weight Measurement Method Standing Scale BMI 36.9 BP 116/67 Blood Pressure Source Automatic Cuff Blood Pressure Location Left Upper Arm Position Sitting Respiration 16 Pulse 81 Pulse Source Monitor Temp 97.2 F Temp Source Oral Pulse Oximetry (%) 98 Oxygen Delivery Method Room Air Allergies/Home Meds Allergies & Medications Allergies No Known Allergies Allergy (Verified 02/01/25 15:57) Intake Visit Data Collection New Patient or Established: Established Patient (seen at [facility] within 3 years) Reason for Visit:: obc Do You Feel Safe at Home: Yes Authorities Contacted: N/A PCP or OBGYN visit in last 3 months: Yes Smoking Status Smoking Status: Never smoker Questionnaires PHQ-9 PHQ-2 Over the last 2 weeks, how often have you been bothered by any of the following problems? 1. Little interest or pleasure in doing things: several days PHQ-9 8. Moving or speaking so slowly that other people could have noticed? - Or the opposite - being so fidgety or restless that you have been moving around a lot more than usual: not at all Source: Developed by Drs. Naveen Alex, Marcia Mcclellan, Edward Buchanan and colleagues, with an educational holly from [employer]. 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 Past Medical History: No Hx Neurological Disorders, No Hx Breast Cancer, No Hx Cardiac Disorders, No Hx Cancer, No Hx Blood Disorders, No Hx Gastrointestinal Disorders, No Hx Renal Disease, No Hx Diabetes Mellitus Type 1, No Hx Diabetes Mellitus Type 2, No Hx Tubal Ligation and No Hx Hysterectomy Care OB Visit Log OB Flowsheet Initial Weight: Not Recorded Date -?-?-?-?-?-?-?-?-?-?-?-?- EGA Weight BP Alb Glu CTX Pres Fundal ht FHR Mov Dilation Station Effacement Hx Notes Visit Note 01/12/25 -?-?-?-?-?-?-?-?-?-?-?-?- 27w 6d 85.275 kg 94/57 occasional unknown 28 1 45 active 29 yo IUP 27w6 with PTL. Treated in L&D with IV hydration. dc home on Nifedipine 10mg tid, increase fluid and rest. order 1 hr gtt, HA1c, NIPT and carrier screen. schedule MFM for anatomy scan, NUSWAB for GC/ct, ptl precaution, rtc 6 days for RPR results and f/u 01/18/25 -?-?-?-?-?-?-?-?-?-?-?-?- 28w 5d 86.75 kg 113/64 absent 29 141 act jake for OBC, partner is in [place], fetus active, compliance with Nifedipine. Denies UC today. discuss +RPR, titer 1:16, +TPA. patient denies previous hx of syphilis. health dept aware. Bicollin 2.4 mu IM. gave patient handout. discuss partner treatment, no sex, discuss safe sex, review ptl precaution, ihr gtt results pending, increase fluid, rtc 1 week Bicillin 2.4#2, schedule mfm appointment for OBC, partner is in [facility], fetus active, compliance with Nifedipine. Denies UC today. discuss +RPR, titer 1:16, +TPA. patient denies previous hx of syphilis. health dept aware. Bicollin 2.4 mu IM. gave patient handout. discuss partner treatment, no sex, discuss safe sex, review ptl precaution, ihr gtt results pending, increase fluid, rtc 1 week Bicillin 2.4#2, schedule mfm appointmentpatient tried to fainted after Bicillin 2.4 01/25/25 -?-?-?-?-?-?-?-?-?-?-?-?- 29w 5d 86.75 kg 110/67 absent cephalic 30 141 active fetus active, reports compliance with zithromax 1 gm PM, partner has not notified partner. NO sex/safe sex reviewed, MFM appointment pending, [facility], increase fluid and rest, ptl precaution. flagyl 500 bid x7. rtc 1 week bicillin 2.4 #3 02/01/25 -?-?-?-?-?-?-?-?-?-?-?-?- 30w 5d 88.904 kg 105/62 absent cephalic 32 143 active Reports good movement. Denies labor complaints. Patient is not sexually active. Patient reports that she when her is back in the house she will have him get tested and treated for both syphilis and chlamydia. Denies labor complaints. Discussed NIPT with patient. Patient got Tdap last visit. MFM visit is still pending insurance. Return in 2 weeks visit Reports good movement. Denies labor complaints. Patient is not sexually active. Patient reports that she when her is back in the house she will have him get tested and treated for both syphilis and chlamydia. Denies labor complaints. Discussed NIPT with patient. Patient got Tdap last visit. MFM visit is still pending insurance. Return in 2 weeks OBC. Bicillin 2.4U IM #3 today, contineu to practice safe sex and condom use 02/23/25 -?-?-?-?-?-?-?-?-?-?-?-?- 33w 6d 88.451 kg 106/67 occasional cephalic 33 145 active reports good movement. denies LOF,VB,UC, mfm appointment 02/26 GC/CT LIYA today, get 3rd tri lab, discuss fkc bid.discuss PTL precaution, increase fluid. keep mfm appt 02/26, rtc 1 week obc 03/02/25 -?-?-?-?-?-?-?-?-?-?-?-?- 34w 6d 88.677 kg 116/67 occasional cephalic 35 145 active reports good movement, no complaints zithromax 1 gm to patient and partner. advised no sex, discuss safe sex and compliance with medication. 3hr gtt ordered, discuss FKC bid and ptl precaution, increase fluid, OB sono pending. disability starts today PAVEL Calculator Estimated Delivery Date Method Current WG Current Estimate 04/07/25 Ultrasound #1 36w 5d Notes Visit Date: 03/02/25 Last Updated by: Elizabeth Sampson CNM LIYA: +CT/BV+ 03/01. 1 hr gtt:155 Visit Date: 02/23/25 Last Updated by: Elizabeth Sampson CNM 29 yo . no dates. sono 11/29/24: IUP 21w4. EDC: 04/07/25. A+,abs-, rpr;;Reactive,titer: 1:16. treated with Bicillin 2.4 s3, partner not treated. GC-/CT+. treated with zithromax. BV+/tx with flagyl, hbsag-,HIV-,HC-. NIPT and carrier screen-. treated with nifedipine 10mg tid for PTL Visit Date: 01/25/25 Last Updated by: Elizabeth Sampson CNM 29 yo , Office Procedures OB Clinic LOC & Office Proc's Nursing/Assessment Patient Status: Established Patient OB Clinic Nursing Assessment: Medication Reconciliation, Update PMH in EMR and Vital Signs OB Clinic Coordination of Care: Complex Care/Chronic Disease 5 or more, Consent,records obtained, informed consent, Education Simp Pt/Fam and Staff clarify orders Special Needs: Hearing special needs Established Patient Charge Established Patient Point Assignment: 95 Established Patient Point Charge: EP Level 3 (80-115) Assessment & Plan Diagnosis / Problem List (1) Encounter for supervision of high risk in third trimester, antepartum: Status: Acute (2) Chlamydia: Status: Acute Plan zithromax 1 gm to pt and partner. flagyl 500 bid x7, discuss safe sex and condom, i advised no sex and stressed compliance, do 3 hr gtt. MFM sono pending 03/10. PTL precaution GBS NV. discuss fkc bid Additional Plan Follow Up: 2 Weeks (obc/gbs)
== END 2025-03-02 15:41 | disposition home or self-care (01) ==
LOC: HODSOBC 14:57
PROVIDERS: PCP Advanced Practice Midwife; Referring Provider Advanced Practice Midwife; Supervising Provider Advanced Practice Midwife; Visit Provider Advanced Practice Midwife
DX: O09.893 Supervision of other high risk pregnancies, third trimester (principal); Z3A.34 34 weeks gestation of pregnancy; O98.313 Other infections with a predominantly sexual mode of transmission complicating pregnancy, third trimester; A56.8 Sexually transmitted chlamydial infection of other sites
CPT/HCPCS: 99213; G0463

== ENCOUNTER 2025-03-22 14:30 | Outpatient (AMB) | payer MEDICAID, SELFPAY ==
[2025-03-22 14:42] VITALS: BP 112/70; PULSE 77; RESP 17; TEMP 36.7; O2SAT 97; BMI 37.8
--- NOTE | 2025-03-22 14:42 | OBCLNT_ITS ---
Vital Signs 03/22/25 14:42 Height 1.55 m Height Method Measured Weight 90.718 kg Weight Measurement Method Standing Scale BMI 37.8 BP 112/70 Blood Pressure Source Automatic Cuff Blood Pressure Location Right Upper Arm Position Sitting Respiration 17 Pulse 77 Pulse Source Monitor Temp 98.0 F Temp Source Temporal Artery Scan Pulse Oximetry (%) 97 Oxygen Delivery Method Room Air Allergies/Home Meds Allergies & Medications Allergies No Known Allergies Allergy (Verified 03/22/25 14:43) Medication Reconciliation vitamins-iron fumarate 27 mg iron-folic acid 0.8 mg tablet ( Vitamin) 1 tab PO QDAY 10/29/18 [History Confirmed 03/22/25] Intake Visit Data Collection New Patient or Established: Established Patient (seen at [facility] within 3 years) Reason for Visit:: OBC Consent obtained for Telemed Visit: No Seen by Clinical Staff ONLY (RN/MA): No 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 1. Little interest or pleasure in doing things: several days PHQ-9 8. Moving or speaking so slowly that other people could have noticed? - Or the opposite - being so fidgety or restless that you have been moving around a lot more than usual: not at all Source: Developed by Drs. Naveen Alex, Marcia Mcclellan, Edward Buchanan and colleagues, with an educational holly from [employer]. 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 Past Medical History: No Hx Neurological Disorders, No Hx Breast Cancer, No Hx Cardiac Disorders, No Hx Cancer, No Hx Blood Disorders, No Hx Gastrointestinal Disorders, No Hx Renal Disease, No Hx Diabetes Mellitus Type 1, No Hx Diabetes Mellitus Type 2, No Hx Tubal Ligation and No Hx Hysterectomy Care OB Visit Log OB Flowsheet Initial Weight: Not Recorded Date -?-?-?-?-?-?-?-?-?-?-?-?- EGA Weight BP Alb Glu CTX Pres Fundal ht FHR Mov Dilation Station Effacement Hx Notes Visit Note 01/12/25 -?-?-?-?-?-?-?-?-?-?-?-?- 27w 6d 85.275 kg 94/57 occasional unknown 28 1 45 active 29 yo IUP 27w6 with PTL. Treated in L&D with IV hydration. dc home on Nifedipine 10mg tid, increase fluid and rest. order 1 hr gtt, HA1c, NIPT and carrier screen. schedule MFM for anatomy scan, NUSWAB for GC/ct, ptl precaution, rtc 6 days for RPR results and f/u 01/18/25 -?-?-?-?-?-?-?-?-?-?-?-?- 28w 5d 86.75 kg 113/64 absent 29 141 act jake for OBC, partner is in [place], fetus active, compliance with Nifedipine. Denies UC today. discuss +RPR, titer 1:16, +TPA. patient denies previous hx of syphilis. health dept aware. Bicollin 2.4 mu IM. gave patient handout. discuss partner treatment, no sex, discuss safe sex, review ptl precaution, ihr gtt results pending, increase fluid, rtc 1 week Bicillin 2.4#2, schedule mfm appointment for OBC, partner is in [facility], fetus active, compliance with Nifedipine. Denies UC today. discuss +RPR, titer 1:16, +TPA. patient denies previous hx of syphilis. health dept aware. Bicollin 2.4 mu IM. gave patient handout. discuss partner treatment, no sex, discuss safe sex, review ptl precaution, ihr gtt results pending, increase fluid, rtc 1 week Bicillin 2.4#2, schedule mfm appointmentpatient tried to fainted after Bicillin 2.4 01/25/25 -?-?-?-?-?-?-?-?-?-?-?-?- 29w 5d 86.75 kg 110/67 absent cephalic 30 141 active fetus active, reports compliance with zithromax 1 gm PM, partner has not notified partner. NO sex/safe sex reviewed, [facility] appointment [facility], increase fluid and rest, ptl precaution. flagyl 500 bid x7. rtc 1 week bicillin 2.4 #3 02/01/25 -?-?-?-?-?-?-?-?-?-?-?-?- 30w 5d 88.904 kg 105/62 absent cephalic 32 143 active Reports good movement. Denies labor complaints. Patient is not sexually active. Patient reports that she when her is back in the house she will have him get tested and treated for both syphilis and chlamydia. Denies labor complaints. Discussed NIPT with patient. Patient got Tdap last visit. MFM visit is still pending insurance. Return in 2 weeks visit Reports good movement. Denies labor complaints. Patient is not sexually active. Patient reports that she when her is back in the house she will have him get tested and treated for both syphilis and chlamydia. Denies labor complaints. Discussed NIPT with patient. Patient got Tdap last visit. MFM visit is still pending insurance. Return in 2 weeks OBC. Bicillin 2.4U IM #3 today, contineu to practice safe sex and condom use 02/23/25 -?-?-?-?-?-?-?-?-?-?-?-?- 33w 6d 88.451 kg 106/67 occasional cephalic 33 145 active reports good movement. denies LOF,VB,UC, mfm appointment 02/26 GC/CT LIYA today, get 3rd tri lab, discuss fkc bid.discuss PTL precaution, increase fluid. keep mfm appt 02/26, rtc 1 week obc 03/02/25 -?-?-?-?-?-?--?-?-?-?-?-?- 34w 6d 88.677 kg 116/67 occasional cephalic 35 145 active reports good movement, no complaints zithromax 1 gm to patient and partner. advised no sex, discuss safe sex and compliance with medication. 3hr gtt ordered, discuss FKC bid and ptl precaution, increase fluid, OB sono pending. disability starts today 03/22/25 -?-?-?-?-?-?-?-?-?-?-?-?- 37w 5d 90.718 kg 112/70 frequent cephalic 37 1 45 active fetus active, no ob complaints, partner returns this week. compliant with safe sex and pnv. fetus active GBS and nuswab p mya/LIYA today. discuss labor precaution, fkc bid, contiue PNV, fkc bid. patient will call when partner return to order zithromax for partner. no sex, rtc 1 week.discuss labor precaution, danger s/s PAVEL Calculator Estimated Delivery Date Method Current WG Current Estimate 04/07/25 Ultrasound #1 37w 5d Other Estimates 03/24/25 Ultrasound #2 39w 5d Comments: 03/22: 3 hr gtt wnl Notes Visit Date: 03/02/25 Last Updated by: Elizabeth Sampson CNM LIYA: +CT/BV+ 03/01. 1 hr gtt:155 Visit Date: 02/23/25 Last Updated by: Elizabeth Sampson CNM 29 yo . no dates. sono 11/29/24: IUP 21w4. EDC: 04/07/25. A+,abs-, rpr;;Reactive,titer: 1:16. treated with Bicillin 2.4 s3, partner not treated. GC-/CT+. treated with zithromax. BV+/tx with flagyl, hbsag-,HIV-,HC-. NIPT and carrier screen-. treated with nifedipine 10mg tid for PTL Visit Date: 01/25/25 Last Updated by: Elizabeth Sampson CNM 29 yo , Office Procedures OB Clinic LOC & Office Proc's Nursing/Assessment Patient Status: Established Patient OB Clinic Nursing Assessment: Medication Reconciliation, Update PMH in EMR and Vital Signs OB Clinic Coordination of Care: Complex Care and Chronic Disease 1-5, Consent,records obtained, informed consent, Education Simp Pt/Fam and Lab and Imaging orders Special Needs: Heart tones Established Patient Charge Established Patient Point Assignment: 120 Established Patient Point Charge: EP Level 4 (120-155) Assessment & Plan Diagnosis / Problem List (1) Encounter for supervision of high risk in third trimester, antepartum: Status: Acute (2) Chlamydia: Status: Acute Plan NUswab liya, GBS today, patient will call when partner home for zithromax for him, discuss labor precaution, no sex/safe sex, discuss danger s/s, rtc 1 week, sono pending Additional Plan Follow Up: 1 Week (obc)
== END 2025-03-22 14:57 | disposition home or self-care (01) ==
LOC: HODSOBC 14:30
PROVIDERS: PCP Advanced Practice Midwife; Referring Provider Advanced Practice Midwife; Supervising Provider Advanced Practice Midwife; Visit Provider Advanced Practice Midwife
DX: O09.893 Supervision of other high risk pregnancies, third trimester (principal); Z3A.37 37 weeks gestation of pregnancy; O98.313 Other infections with a predominantly sexual mode of transmission complicating pregnancy, third trimester; A56.8 Sexually transmitted chlamydial infection of other sites; Z36.85 Encounter for antenatal screening for Streptococcus B
CPT/HCPCS: 99214; G0463

== ENCOUNTER 2025-04-05 13:43 | Outpatient (AMB) | payer MEDICAID, SELFPAY ==
--- NOTE | 2025-04-05 13:57 | OBCLNT_ITS ---
Vital Signs 04/05/25 13:58 Height 1.55 m Height Method Stated Weight 92.533 kg Weight Measurement Method Standing Scale BMI 38.5 BP 116/71 Blood Pressure Source Automatic Cuff Blood Pressure Location Left Upper Arm Position Sitting Respiration 15 Pulse 72 Pulse Source Monitor Temp 97.8 F Temp Source Oral Pulse Oximetry (%) 96 Oxygen Delivery Method Room Air Allergies/Home Meds Allergies & Medications Allergies No Known Allergies Allergy (Verified 04/05/25 13:59) Medication Reconciliation vitamins-iron fumarate 27 mg iron-folic acid 0.8 mg tablet ( Vitamin) 1 tab PO QDAY 10/29/18 [History Confirmed 04/05/25] azithromycin 500 mg tablet 1,000 mg (2 x 500 mg) PO QDAY 1 day #2 tabs 04/05/25 [Rx] vits no.130-ferrous fum 27 mg iron-folic acid 800 mcg tablet ( Vitamin) 1 tab PO QDAY #60 tabs 04/05/25 [Rx] Intake Visit Data Collection New Patient or Established: Established Patient (seen at [facility] within 3 years) Reason for Visit:: CARE Seen by Clinical Staff ONLY (RN/MA): 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 1. Little interest or pleasure in doing things: several days 2. Feeling down, depressed, or hopeless: not at all Total score: 1 PHQ-9 3. Trouble falling or staying asleep, or sleeping too much: Not at all 4. Feeling tired or having little energy: Not at all 5. Poor appetite or overeating: Not at all 6. Feeling bad about yourself - or that you are a failure or have let yourself or your family down: Not at all 8. Moving or speaking so slowly that other people could have noticed? - Or the opposite - being so fidgety or restless that you have been moving around a lot more than usual: not at all 9. Thoughts that you would be better off or of hurting yourself in some way: Not at all Source: Developed by Drs. Naveen Alex, Marcia Mcclellan, Edward dunlap nd colleagues, with an educational holly from [employer]. 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 Past Medical History: No Hx Neurological Disorders, No Hx Breast Cancer, No Hx Cardiac Disorders, No Hx Cancer, No Hx Blood Disorders, No Hx Gastrointestinal Disorders, No Hx Renal Disease, No Hx Diabetes Mellitus Type 1, No Hx Diabetes Mellitus Type 2, No Hx Tubal Ligation and No Hx Hysterectomy Care OB Visit Log OB Flowsheet Initial Weight: Not Recorded Date -?-?-?-?-?-?-?-?-?-?-?-?- EGA Weight BP Alb Glu CTX Pres Fundal ht FHR Mov Dilation Station Effacement Hx Notes Visit Note 01/12/25 -?-?-?-?-?-?-?-?-?-?-?-?- 27w 6d 85.275 kg 94/57 occasional unknown 28 1 45 active 29 yo IUP 27w6 with PTL. Treated in L&D with IV hydration. dc home on Nifedipine 10mg tid, increase fluid and rest. order 1 hr gtt, HA1c, NIPT and carrier screen. schedule MFM for anatomy scan, NUSWAB for GC/ct, ptl precaution, rtc 6 days for RPR results and f/u 01/18/25 -?-?-?-?-?-?-?-?-?-?-?-?- 28w 5d 86.75 kg 113/64 absent 29 141 act jake for OBC, partner is in [place], fetus active, compliance with Nifedipine. Denies UC today. discuss +RPR, titer 1:16, +TPA. patient denies previous hx of syphilis. health dept aware. Bicollin 2.4 mu IM. gave patient handout. discuss partner treatment, no sex, discuss safe sex, review ptl precaution, ihr gtt results pending, increase fluid, rtc 1 week Bicillin 2.4#2, schedule mfm appointment for OBC, partner is in [place], fetus active, compliance with Nifedipine. Denies UC today. discuss +RPR, titer 1:16, +TPA. patient denies previous hx of syphilis. health dept aware. Bicollin 2.4 mu IM. gave patient handout. discuss partner treatment, no sex, discuss safe sex, review ptl precaution, ihr gtt results pending, increase fluid, rtc 1 week Bicillin 2.4#2, schedule mfm appointmentpatient tried to fainted after Bicillin 2.4 01/25/25 -?-?-?-?-?-?-?-?-?-?-?-?- 29w 5d 86.75 kg 110/67 absent cephalic 30 141 active fetus active, reports compliance with zithromax 1 gm PM, partner has not notified partner. NO sex/safe sex reviewed, MFM appointment pending, [facility], increase fluid and rest, ptl precaution. flagyl 500 bid x7. rtc 1 week bicillin 2.4 #3 02/01/25 -?-?-?-?-?-?-?-?-?-?-?-?- 30w 5d 88.904 kg 105/62 absent cephalic 32 143 active Reports good movement. Denies labor complaints. Patient is not sexually active. Patient reports that she when her is back in the house she will have him get tested and treated for both syphilis and chlamydia. Denies labor complaints. Discussed NIPT with patient. Patient got Tdap last visit. MFM visit is still pending insurance. Return in 2 weeks visit Reports good movement. Denies labor complaints. Patient is not sexually active. Patient reports that she when her is back in the house she will have him get tested and treated for both syphilis and chlamydia. Denies labor complaints. Discussed NIPT with patient. Patient got Tdap last visit. MFM visit is still pending insurance. Return in 2 weeks OBC. Bicillin 2.4U IM #3 today, contineu to practice safe sex and condom use 02/23/25 -?-?-?-?-?-?-?-?-?-?-?-?- 33w 6d 88.451 kg 106/67 occasional cephalic 33 145 active reports good movement. denies LOF,VB,UC, mfm appointment 02/26 GC/CT LIYA today, get 3rd tri lab, discuss fkc bid.discuss PTL precaution, increase fluid. keep mfm appt 02/26, rtc 1 week obc 03/02/25 -?-?-?-?-?-?-?-?-?-?-?-?- 34w 6d 88.677 kg 116/67 occasional cephalic 35 145 active reports good movement, no complaints zithromax 1 gm to patient and partner. advised no sex, discuss safe sex and compliance with medication. 3hr gtt ordered, discuss FKC bid and ptl precaution, increase fluid, OB sono pending. disability starts today 03/22/25 -?-?-?-?-?-?-?-?-?-?-?-?- 37w 5d 90.718 kg 112/70 frequent cephalic 37 1 45 active fetus active, no ob complaints, partner returns this week. compliant with safe sex and pnv. fetus active GBS and nuswab p mya/LIYA today. discuss labor precaution, fkc bid, contiue PNV, fkc bid. patient will call when partner return to order zithromax for partner. no sex, rtc 1 week.discuss labor precaution, danger s/s 04/05/25 -?-?-?-?-?-?-?-?-?-?-?-?- 39w 5d 92.533 kg 116/71 frequent cephalic 38 1 45 active patient appointment at home, needs TX for + CT, fetus active, no bleeding,no leaking. fetus active IOl 04/11/25 IOl 04/11/25, RPR today, zith romax1 gm to partner. no sex, discuss safe sex, advised partner to [place] treated with Bicillin 2.4 now for + RPR. refill PNV. discuss safe sex. discuss labor precaution, fkc bid. rtc 1 week obc IOl 04/11/25, RPR today, zith romax1 gm to partner. no sex, discuss safe sex, advised partner to get treated with Bicillin 2.4 now for + RPR. refill PNV. discuss safe sex. discuss labor precaution, fkc bid. rtc 1 week obc PAVEL Calculator Estimated Delivery Date Method Current WG Current Estimate 04/07/25 Ultrasound #1 39w 5d Other Estimates 03/24/25 Ultrasound #2 41w 5d Notes Visit Date: 03/02/25 Last Updated by: Elizabeth Sampson CNM LIYA: +CT/BV+ 03/01. 1 hr gtt:155 Visit Date: 02/23/25 Last Updated by: Elizabeth Sampson CNM 29 yo . no dates. sono 11/29/24: IUP 21w4. EDC: 04/07/25. A+,abs-, rpr;;Reactive,titer: 1:16. treated with Bicillin 2.4 s3, partner not treated. GC-/CT+. treated with zithromax. BV+/tx with flagyl, hbsag-,HIV-,HC-. NIPT and carrier screen-. treated with nifedipine 10mg tid for PTL Visit Date: 01/25/25 Last Updated by: Elizabeth Sampson CNM 29 yo , Office Procedures OB Clinic LOC & Office Proc's Nursing/Assessment Patient Status: Established Patient OB Clinic Nursing Assessment: Medication Reconciliation, Update PMH in EMR and Vital Signs OB Clinic Coordination of Care: Complex Care and Chronic Disease 1-5, Consent,records obtained, informed consent, Education Simp Pt/Fam, Lab and Imaging orders, Results/Orders obtained and Staff clarify orders Special Needs: Heart tones Established Patient Charge Established Patient Point Assignment: 135 Established Patient Point Charge: EP Level 4 (120-155) Assessment & Plan Diagnosis / Problem List (1) Encounter for supervision of high risk in third trimester, antepartum: Status: Acute Plan Schedule induction of labor April 11. Discussed labor precautions and kick count twice daily. Discussed danger signs symptoms and ER precautions. Labor precautions given to patient. I gave patient a prescription of Zithromax 1 g to give to her partner. Patient had a recent negative test of cure over a week ago. Partner was not treated yet for positive syphilis. So partner was advised to go get start treatment with Bicillin today. Refill vitamins. And I discussed induction with patient. Additional Plan Follow Up: 1 Week (obc)
[2025-04-05 13:58] VITALS: BP 116/71; PULSE 72; RESP 15; TEMP 36.6; O2SAT 96; BMI 38.5
== END 2025-04-05 14:50 | disposition home or self-care (01) ==
LOC: HODSOBC 13:43
PROVIDERS: PCP Advanced Practice Midwife; Referring Provider Advanced Practice Midwife; Supervising Provider Advanced Practice Midwife; Visit Provider Advanced Practice Midwife
DX: O09.93 Supervision of high risk pregnancy, unspecified, third trimester (principal); Z3A.39 39 weeks gestation of pregnancy
CPT/HCPCS: 99214; G0463

== ENCOUNTER 2025-04-11 23:05 | Inpatient (IN) | payer MEDICAID, SELFPAY ==
[2025-04-11 23:15] VITALS: BMI 39.1
[2025-04-11 23:18] VITALS: TEMP 36.7
[2025-04-12] VITALS (112 sets, daily range): BP systolic 91–159; BP diastolic 50–88; PULSE 34–137; RESP 17–20; TEMP 36.7–37.1; O2SAT 83–100
--- NOTE | 2025-04-12 00:03 | PD.LDHP ---
Documentation for date of: 04/12/25 OB Labor/Induct. HPI History of Present Illness Chief complaint: Induction of labor : 3 Para: 2 Term pregnancies: 2 pregnancies: 0 Living children: 2 History of Abortions: Spontaneous and Elective: 0 History of sections: No History of : No PAVEL: 04/07/25 Gestational Age (weeks): 40 Gestational Age (days): 5 History of present illness: 29-year-old 3 para 2 at 40 weeks and 5 days with estimated due date of 04/07/2025 presents for induction of labor for late term. Patient denies any contractions or leakage of fluid or vaginal bleeding and reports good movements. Patient entered care late at about 29 weeks, she was seeing the CNM at the [facility] [employer] clinic. Of note during the current she was positive for chlamydia as well as RPR reactive with positive tPA and she was treated for both chlamydia as well as syphilis. Labs Labs: Positive: RPR, Negative: Hepatitis B, HIV, Chlamydia, Gonorrhea and Group Beta Strep and Unknown: Rubella Titre, Herpes Type 1, Herpes Type 2 and Covid-19 Review of Systems Review of Systems Systems Reviewed: All systems reviewed, normal except as documented Past Medical History Surgical History SURGICAL: Negative Section Meds Home Medications and Allergies Home Medications ?Medication ?Instructions ?Recorded ?Confirmed ?Type vitamins-iron fumarate 27 1 tab PO QDAY 10/29/18 04/05/25 History mg iron-folic acid 0.8 mg tablet ( Vitamin) Allergies Allergy/AdvReac Type Severity Reaction Status Date / Time No Known Allergies Allergy Verified 04/05/25 13:59 OB Exam Constitutional Constitutional: no acute distress Routine HEENT Exam Head: Present normocephalic and atraumatic Eye: Present EOMI and PERRL ENT: Present mucous membranes moist Routine Neck Exam Neck: Present supple and trachea midline Routine Cardiovascular Exam Cardiovascular: Present RRR Routine Abdominal Exam Abdominal: Present soft and normoactive bowel sounds Detailed Labor and Delivery Exam Dilation (cm): 1 Effacement (%): 50 Cervix position: mid Consistency: medium Presentation: Vertex Membranes: intact Baseline heart rate: 145 monitor accelerations: 15x15 monitor decelerations: None Routine Extremities Exam Extremities: Present full ROM Routine Skin Exam Skin: Present intact, dry and warm Routine Neurological Exam Neurological: Present alert, oriented X3 and CN II-XII intact Routine Psychiatric Exam Psychiatric: Present normal affect and normal thought process OB Assessment & Plan Assessment and Plan (1) Encounter for supervision of high risk in third trimester, antepartum: Status: Acute (2) Chlamydia: Status: Acute (3) Syphilis 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
--- NOTE | 2025-04-12 00:12 | XR_ITS ---
Examination: Complete OB ultrasound greater than 14 weeks Date and time of exam: April 12, 2025, 0028 hours INDICATIONS: Unknown presentation and weight Findings: Viable intrauterine single fetus with single amniotic sac presentation cephalic Cardiac motion 144 BPM Placenta anterior fundal grade 3 Umbilical cord insertion seen. Amniotic fluid index 5.7 cm Ovaries obscured by bowel gas. Composite estimated gestational age based on BPD, head circumference, abdominal circumference, femur length is 39 weeks 5 days Estimated weight 3871.9 g. Survey of intracranial anatomy, spinal anatomy, abdominal anatomy, four-chamber heart performed with no abnormalities identified. Impression: Viable intrauterine gestation cephalic presentation.
[2025-04-12 00:44] LABS: Basophils # (Auto) 0.0 Thou/mm3 (0.0-0.2); Basophils % (Auto) 0 % (0-2.5); Eosinophils # (Auto) 0.1 Thou/mm3 (0.0-0.5); Eosinophils % (Auto) 1 % (0-10); Hematocrit 36.3 % (36.0-46.0); Hemoglobin 12.2 g/dL (12.0-16.0); Immature Granulocytes Auto 0.03 Thou/mm3 (0.00-0.00); Lymphocytes # (Auto) 2.0 Thou/mm3 (1.0-4.8); Lymphocytes % (Auto) 23 % (10-50); Mean Corpuscular HGB Conc 33.6 g/dl (31.0-37.0); Mean Corpuscular Hemoglobin 29.5 pg (25.0-35.0); Mean Corpuscular Volume 88 fL (80-100); Monocytes # (Auto) 0.7 Thou/mm3 (0.0-0.8); Monocytes % (Auto) 8 % (0-12); Neutrophils # (Auto) 5.8 Thou/mm3 (1.8-7.7); Neutrophils % (Auto) 67 % (37-80); Nucleated Red Blood Cell # 0.00 Thou/mm3 (0.00-0.00); Nucleated Red Blood Cell % 0 /100 WBC (0); Platelet Count 229 Thou/mm3 (140-440); RDW Standard Deviation 43.8 fL (36.4-46.3); Red Blood Count 4.13 Miln/mm3 (4.00-5.20); White Blood Count 8.6 Thou/mm3 (3.6-11.0)
[2025-04-12 01:47] LABS: Syphilis Reactive (Nonreactive)
[2025-04-12 01:48] LABS: MHATP/TP-PA* See Sep Rpt
[2025-04-12 01:56] LABS: Amphetamine/Metham Scrn,Ur OB Negative (Negative); Benzoylecgonine Screen, Ur OB Negative (Negative); Opiate Screen,Urine OB Negative (Negative); THC Screen,Urine OB Negative (Negative)
--- NOTE | 2025-04-12 02:04 | PRELIM_ITS ---
Obstetric ultrasound with Doppler. April 12, 2025 at 0028 hours Clinical history: EFW, presentation. Comparison: None. Findings: There is a gravid uterus with a live fetus in cephalic presentation of mean gestational age 39 weeks and 5 days (by biometry). cardiac activity is present at a heart rate of 144 beats per minute. The placenta is anterior/fundal in location, maturity grade 3. There is no evidence of placenta previa or retroplacental hemorrhage. Amniotic fluid is adequate (ARIE = 5.7 cm, MVP 2.4 cm). Estimated weight is 3872 grams+/- 573 grams. No abnormalities by Doppler. Impression: Gravid uterus with a single live fetus in cephalic presentation of mean gestational age 39 weeks 5 days. Report Electronically Signed By: Vipul Merino 04/12/2025 2:03:29 AM [EST]
[2025-04-12] MEDS: RINGERS LACTATED 1000 ML 1,000 ML 100 ML IV ×3 (06:32→18:35)
--- NOTE | 2025-04-12 07:08 | PC.NURSE ---
04/11/25-04/12/25 RN precepting Saloni Garrison RN, review and agree with labor progress assessment charting.
[2025-04-12] MEDS: fentaNYL CIT INJ 50 mCg/ML AMP 2ML 100 MCG IVP (16:42)
[2025-04-12] MEDS: OXYTOCIN INJ 10 UNIT/ML VIAL IM (20:00)
[2025-04-12] MEDS: OXYTOCIN in NS 20 units 20 UNIT/1,000 ML BAG 125 UNIT IV (20:03)
[2025-04-12] MEDS: TRANEXAMIC ACID 1,000 MG IVPB 1,000 MG/100 ML BAG 200 MG IV ×2 (20:23→22:58)
--- NOTE | 2025-04-12 20:33 | OBDSUM_ITS ---
Data (Rivas) Data Hx Section: No : 3 Term: 2 : 0 Livin Abortions: Spontaneous & Theraputic: 0 Delivery Data (Rivas) Labor Data Initiation of labor: Induction Induction/Augmentation Agent: Cytotec-PO ROM date: 04/12/25 ROM time: 19:17 Amniotic membrane rupture type: Spontaneous Amniotic fluid description: Clear Delivery Data EDC: 04/07/25 EDC calculated by:: ultrasound Date of arrival to unit: 04/11/25 Time of arrival to unit: 23:05 Onset of labor date: 04/12/25 Onset of labor time: 16:30 Complete dilation date: 04/12/25 Complete dilation time: 19:24 delivery date: 04/12/25 [place] delivery time: 19:56 Gestational age (weeks): 40 Gestational age (days): 5 Placenta delivery date: 04/12/25 Placenta delivery time: 19:57 Stage 1 total time: Labor - Stage 1 Duration 2 hours and 54 minutes Delivered by: Brittney Delivery nurse: Sid CANTRELL [place] nurse: Debora Granger Hardscape Foreman at delivery: No Support person(s) at delivery: FOB Other staff at delivery: Piter Morales RN Delivery Method Delivery method: Normal Vaginal Delivery Presentation: Vertex position: other (right hand) Anesthesia Type Anesthesia Type: Epidural Delivery Room Medications Delivery room medications given: fentanyl Delivery room medications: Pitocin 10 u IM, Pitocin 20 u IV, Cytotec 800 LA and other (txa x2) Placenta Placenta delivery description: Spontaneous Cord blood sent to lab: Yes cord blood collection: Cord Blood Type Episiotomy Episiotomy description: None Lacerations #1: Perineal: 1st degree Perineal repair Sutures used for repair: 3.0 Vicryl EBL Estimated blood loss (ml): 400 Umbilical Cord cord description: 3 Vessels Complications Complications: several small rectal condyloma [place] Data (Rivas) Data order: 1 [place]'s gender: Male Identification band number: [id number] weight (gms): 3970 g Weight (pounds): 8 lbs and 12.0 ozs length: 56 cm 1 minute: 8 5 minutes: 9
[2025-04-12] MEDS: BENZO/LANO/ALOE (Dermoplast) 60 GM CAN 1 SPRAY TOP (22:58)
[2025-04-13 00:05] VITALS: BP 114/70; RESP 18; TEMP 37.1; O2SAT 98
[2025-04-13 03:45] VITALS: BP 114/73; PULSE 80; RESP 18; TEMP 37.2; O2SAT 98
[2025-04-13] MEDS: IBUPROFEN TAB 400 MG TABLET 800 MG PO (03:52)
[2025-04-13 05:40] LABS: Basophils # (Auto) 0.1 Thou/mm3 (0.0-0.2); Basophils % (Auto) 0 % (0-2.5); Eosinophils # (Auto) 0.1 Thou/mm3 (0.0-0.5); Eosinophils % (Auto) 0 % (0-10); Hematocrit 33.3 % (36.0-46.0); Hemoglobin 11.4 g/dL (12.0-16.0); Immature Granulocytes Auto 0.06 Thou/mm3 (0.00-0.00); Lymphocytes # (Auto) 2.7 Thou/mm3 (1.0-4.8); Lymphocytes % (Auto) 18 % (10-50); Mean Corpuscular HGB Conc 34.2 g/dl (31.0-37.0); Mean Corpuscular Hemoglobin 30.3 pg (25.0-35.0); Mean Corpuscular Volume 89 fL (80-100); Monocytes # (Auto) 1.5 Thou/mm3 (0.0-0.8); Monocytes % (Auto) 10 % (0-12); Neutrophils # (Auto) 10.4 Thou/mm3 (1.8-7.7); Neutrophils % (Auto) 71 % (37-80); Nucleated Red Blood Cell # 0.00 Thou/mm3 (0.00-0.00); Nucleated Red Blood Cell % 0 /100 WBC (0); Platelet Count 199 Thou/mm3 (140-440); RDW Standard Deviation 44.9 fL (36.4-46.3); Red Blood Count 3.76 Miln/mm3 (4.00-5.20); White Blood Count 14.7 Thou/mm3 (3.6-11.0)
--- NOTE | 2025-04-13 08:05 | PD.LDPPPRG ---
Subjective Subjective Interval history: No complaints of pain. No dizziness. Bonding and breast-feeding. Exam Vital Signs Temp Pulse Resp BP Pulse Ox O2 Del Method 98.9 F 80 18 114/73 98 Room Air 04/13/25 03:45 04/13/25 03:45 04/13/25 03:45 04/13/25 03:45 04/13/25 03:45 04/13/25 03:45 Narrative Exam Vital signs are stable afebrile. Breasts are soft. Fundus firm below the umbilicus. Perineum intact no swelling. Small lochia. Uterus well involuted. Negative Homans' sign. 2+ DTRs Objective Labs 04/13/25 04:30 Labs: Laboratory Results - last 24 hr 04/12/25 04/13/25 00:25 04:30 WBC 14.7 H D RBC 3.76 L Hgb 11.4 L Hct 33.3 L MCV 89 MCH 30.3 MCHC 34.2 RDW Std Deviation 44.9 Plt Count 199 D Neut % (Auto) 71 Lymph % (Auto) 18 [place]oula % (Auto) 10 Eos % (Auto) 0 Baso % (Auto) 0 Neut # (Auto) 10.4 H Lymph # (Auto) 2.7 [place]a # (Auto) 1.5 H Eos # (Auto) 0.1 Baso # (Auto) 0.1 Immature Gran # (Auto) 0.06 H Absolute Nucleated RBC 0.00 Immature Gran % 0 Nucleated RBC % 0 T.pallidum Ab (MHA) See Sep Rpt Assessment & Plan Problem List (1) Encounter for supervision of high risk in third trimester, antepartum: Status: Acute (2) Chlamydia: Status: Acute (3) Syphilis affecting in second trimester: Status: Acute (4) Encounter for induction of labor: Status: Acute (5) Term : Status: Acute Assessment Comment Assessment comment: 24 hr pp Plan Comment Plan Comment: Discharge home with baby today. Okay to board if baby is held. Continue vitamins and iron. Tylenol or ibuprofen for pain. Discussed danger signs and symptoms and ER precautions. Discussed wound care and sitz bath's twice daily. No sex. Encouraged partner to complete treatment for positive syphilis. Discussed signs and symptoms of infection. Return in 3 weeks visit Time Spent With Patient Time: Total time spent is greater than 50% in coordination of care (as documented) at patient's floor/unit and/or counseling patient:
--- NOTE | 2025-04-13 08:07 | PD.LDDS ---
DS: Providers Provider Date of admission: 04/11/25 23:05 Primary care physician: Physician No Primary/Family Admitting Provider: Piter George MD Attending Provider on Admission: Elizabeth Sampson CNM Consults: 04/12/25 22:40 Referral Routine Comment: Attending Provider on DC: Elizabeth Sampson CNM Discharging Provider: Elizabeth Sampson CNM DS: Diagnosis Problem List Completed Was Problem List Reviewed/Reconciled?: Yes Summary/Hosp Course Brief History: 29-year-old 3 para 2 at 40 weeks and 5 days with estimated due date of 04/07/2025 presents for induction of labor for late term. Patient denies any contractions or leakage of fluid or vaginal bleeding and reports good movements. Patient entered care late at about 29 weeks, she was seeing the CNM at the [facility] [employer] clinic. Of note during the current she was positive for chlamydia as well as RPR reactive with positive tPA and she was treated for both chlamydia as well as syphilis. Peripartum Data Delivery Method: Normal Vaginal Delivery Episiotomy Description: None Laceration Description: yes (1 perineal) complications: none Time Spent with Patient Time attestation: Total time spent providing and/or coordinating discharge services: Exam Vital Signs Temp Pulse Resp BP Pulse Ox O2 Del Method 98.9 F 80 18 114/73 98 Room Air 04/13/25 03:45 04/13/25 03:45 04/13/25 03:45 04/13/25 03:45 04/13/25 03:45 04/13/25 03:45 Discharge Plan Plan Patient Disposition: HOME (Self Care) Patient condition on transfer: Stable Prescriptions/Referrals Prescriptions/Med Rec: No Action Vitamin 27 mg iron- 800 mcg tablet 1 tab PO QDAY Qty: 60 2RF Vitamin 27 mg iron- 0.8 mg Tablet 1 tab PO QDAY Referrals: No Primary/Family,Physician [Primary Care Provider] - Patient/Caregiver Discharge Instructions Meds to Beds: No Discharge Activity: resume usual activities Print Language: Pashto Activity Restrictions/Additional Instructions: Discussed that balance and comfort measures for secondary first-degree perineal laceration. Discharge home today with baby. Okay to board if baby is held. Increase fluids. Continue vitamins and. Tylenol or ibuprofen for discomfort. Discussed ER precautions and parameters. Discussed signs symptoms of infection. No sex. Encourage portion to get and complete treatment for syphilis. Return in 3 weeks visit Stand Alone Forms: Jessica Award Info., Patient Portal Info Letter Discharge Order Discharge Orders: Discharge (Routine); Ordered 04/13/25 Ordered By: Elizabeth Sampson Planned Discharge Date 04/13/25
[2025-04-13 08:30] VITALS: BP 140/75; PULSE 70; RESP 17; TEMP 36.7; O2SAT 97
[2025-04-13] MEDS: DOCUSATE SOD 100 MG CAPSULE PO (09:05)
[2025-04-13 11:46] VITALS: BP 115/78; PULSE 69; RESP 17; TEMP 36.6; O2SAT 97
[2025-04-13 15:00] VITALS: BP 106/68; PULSE 69; RESP 17; TEMP 36.9; O2SAT 97
--- NOTE | 2025-04-22 10:08 | ESPR_ITS ---
Documentation for date of: 04/22/25 Data [place] Data Gestational Age (weeks): 40 Gestational Age (days): 5 Weight (gms): 93.894 kg Length (cm): 1.55 m Diagnosis Diagnosis (1) Encounter for supervision of high risk in third trimester, antepartum: Status: Acute (2) Chlamydia: Status: Acute (3) Syphilis affecting in second trimester: Status: Acute (4) Encounter for induction of labor: Status: Acute (5) Term : Status: Acute Problem List Completed Was Problem List Reviewed/Reconciled?: No Assessment and Plan Laboratory Results Lab Results: 04/13/25 04/12/25 04/12/25 04:30 00:25 00:00 WBC 14.7 H D 8.6 RBC 3.76 L 4.13 Hgb 11.4 L 12.2 Hct 33.3 L 36.3 MCV 89 88 MCH 30.3 29.5 MCHC 34.2 33.6 RDW Std Deviation 44.9 43.8 Plt Count 199 D 229 Neut % (Auto) 71 67 Lymph % (Auto) 18 23 [place] % (Auto) 10 8 Eos % (Auto) 0 1 Baso % (Auto) 0 0 Neut # (Auto) 10.4 H 5.8 Lymph # (Auto) 2.7 2.0 [place] # (Auto) 1.5 H 0.7 Eos # (Auto) 0.1 0.1 Baso # (Auto) 0.1 0.0 Immature Gran # (Auto) 0.06 H 0.03 H Absolute Nucleated RBC 0.00 0.00 Immature Gran % 0 0 Nucleated RBC % 0 0 Urine Opiates Screen Negative U Amphetamin/Meth Scrn Negative U Cocaine Metab Screen Negative U Marijuana (THC) Screen Negative Syphilis Serology Reactive A T.pallidum Ab (MHA) See Sep Rpt Blood Type A Positive Antibody Screen NEGATIVE Blood Bank Wristband ID Yes
== END 2025-04-13 17:01 | disposition home or self-care (01) | DRG 560 ==
LOC: S4SX 04-12 20:51 → S4NX 04-12 23:31
PROVIDERS: Admitting Provider Obstetrics & Gynecology; Visit Provider Advanced Practice Midwife
DX: O48.0 Post-term pregnancy (principal); O98.32 Other infections with a predominantly sexual mode of transmission complicating childbirth; A56.8 Sexually transmitted chlamydial infection of other sites; O98.12 Syphilis complicating childbirth; Z37.0 Single live birth; A63.0 Anogenital (venereal) warts; Z3A.40 40 weeks gestation of pregnancy; O70.0 First degree perineal laceration during delivery
CPT/HCPCS: 36415; 59409; 76805; 80307; 85025; 86780; 86850; 86900; 86901; 94762; J2590; J2795; J3010; J3490; J7120; S0191; A9270

== ENCOUNTER 2025-04-14 23:44 | Emergency (ER) | payer MEDICAID, SELFPAY ==
[2025-04-14 23:44] VITALS: BMI 34.7
[2025-04-15 00:05] VITALS: BP 119/76; PULSE 72; RESP 20; TEMP 37; O2SAT 97
--- NOTE | 2025-04-15 00:24 | XR_ITS ---
Examination: Transvaginal ultrasound of the pelvis, complete Technique: Transvaginal sonographic images pelvis performed using daniels scale imaging Exam date and time: April 15, 2025 at 0226 hours INDICATIONS: 4 days ago with onset pelvic pain beginning 2 days ago FINDINGS: Uterus 17.8 cm, heterogeneous lower uterine cervix area measuring 2.6 cm in thickness Ovaries obscured by bowel gas IMPRESSION: Findings suspicious for retained products of conception in the lower uterine segment
--- NOTE | 2025-04-15 00:34 | EDNOTE_ITS ---
ED Female Urogenital RME/HPI General Chief complaint: Abdominal Pain Stated complaint: LOWER ABD PAIN X 2DAYS Time Seen by Provider: 04/15/25 00:25 Arrival date/time: 04/14/25 23:44 29F with no significant PMH presents to ED with 2 days of pelvic pain. Patient gave via vaginal delivery 2 days ago. Patient states bleeding has slowed down but she is still passing some clots. Possible dysuria, but doesn't feel like previous UTIs. Some constipation. Limitations: no limitations Related Data Home Medications ?Medication ?Instructions ?Recorded ?Confirmed vitamins-iron fumarate 27 1 tab PO QDAY 10/2904/12/25 mg iron-folic acid 0.8 mg tablet ( Vitamin) Previous Rx's ?Medication ?Instructions ?Recorded vits no.130-ferrous fum 1 tab PO QDAY #60 tab s 04/05/25 27 mg iron-folic acid 800 mcg tablet ( Vitamin) azithromycin 250 mg tablet 250 mg PO BID 10 days #20 t abs 04/15/25 ibuprofen 800 mg tablet 800 mg PO Q8H PRN pain #30 t abs 04/15/25 Allergies Allergy/AdvReac Type Severity Reaction Status Date / Time No Known Allergies Allergy Verified 04/12/25 16:47 Review of Systems Review of Systems Systems Reviewed: All systems reviewed, normal except as documented Constitutional Constitutional: Reports system reviewed and no additional complaints, except as documented, Denies fever(s) and Denies headache(s) ENT Ears, Nose, Mouth, and Throat: Denies disequilibrium and Denies headache(s) Cardiovascular Cardiovascular: Reports system reviewed and no additional complaints, except as documented, Denies chest pain and Denies dyspnea Respiratory Respiratory: Reports system reviewed and no additional complaints, except as documented, Denies cough and Denies dyspnea Gastrointestinal Gastrointestinal: Reports system reviewed and no additional complaints, except as documented, Denies abdominal pain, Denies nausea and Denies vomiting Genitourinary Genitourinary: Reports as per HPI, Reports abnormal vaginal bleeding and Reports pelvic pain Neurologic Neurologic: Reports system reviewed and no additional complaints, except as documented, Denies confusion, Denies disequilibrium and Denies headache(s) Psychiatric Psychiatric: Denies confusion Past Medical History Past Medical History NEUROLOGIC: Negative Neurological Disorders CARDIAC: Negative Cardiac Disorders or Congestive Heart Failure RESPIRATORY: Negative Chronic Obstructive Pulmonary Disease (COPD), Tuberculosis, Smoking, Smoking Exposure or Tobacco Use GASTROINTESTINAL: Negative Gastrointestinal Disorders, Hepatitis or Colorectal Cancer GENITOURINARY: Negative Genitourinary Disorders, Renal Disease or Prostate Cancer REPRODUCTIVE: Positive Previous Pregnancies and Syphilis; Negative Breast Cancer or Testicular Cancer MUSCULOSKELETAL: Negative Musculoskeletal Disorders, Bone Cancer or Carpal Tunnel Syndrome ENT: Negative Cataracts ENDOCRINE: Negative Endocrine Disorders, Diabetes Mellitus Type 1 or Diabetes Mellitus Type 2 HEMATOLOGIC: Negative Blood Disorders OTHER HISTORY: Positive Hospitalization (CHILDBIRTH); Negative Autoimmune Disease, Down Syndrome, Developmental Delay, Shingles, Falls, Blood Transfusions, Blood Transfusion Reaction, Anesthesia Reactions, Organ Transplant, Chemotherapy, Radiation Therapy, Hyperbaric Therapy, MRSA, VRSA, Vancomycin-Resistant Enterococci, Human Immunodeficiency Virus (HIV), Chicken Pox, Measles, Mumps, Rubella (Sinhala Measles), Pertussis, Clostridium Difficile, Cancer, Breast Cancer, Cervical Cancer, Colorectal Cancer, Lung Cancer, Ovarian Cancer, Prostate Cancer or Testicular Cancer Family History FAMILY HISTORY: Negative Family Psychiatric Problems, Family Respiratory Disorders, Family Cardiac Disorders, Family Gastrointestinal Problems, Family Cancer, Family Surgery or Family Anesthesia Reaction Surgical History SURGICAL: Negative Endocrine Surgery, Thyroidectomy, Ear Surgery, Tympanostomy Tube, Eye Surgery, Nose Surgery, Oral Surgery, Tonsillectomy, Adenoidectomy, Cochlear Implant, Corneal Transplant, Throat Surgery, Abdominal Surgery, Tracheostomy, Gastric Bypass Surgery, Gastrostomy, Bowel Surgery, Joint Replacement, Amputation, Open Reduction Internal Fixation, Arthroscopy, Neurologic Surgery, Brain Shunt, Mastectomy, Lumpectomy, Hysterectomy, Tubal Ligation, Section or Organ Transplant Social History SMOKING STATUS: Never smoker SECOND HAND EXPOSURE: No ED Exam General Limitations: Present no limitations General appearance: Present alert and in no apparent distress Head Head exam: Present atraumatic Eye Eye exam: Present normal appearance, PERRL and EOMI ENT ENT exam: Present normal exam, normal oropharynx and mucous membranes moist Neck Neck exam: Present normal inspection, full ROM and trachea midline Chest Chest inspection: Present normal inspection and symmetric chest wall rise Respiratory Respiratory exam: Present normal lung sounds bilaterally Cardiovascular Cardiovascular exam: Present regular rate, normal rhythm and normal heart sounds Abdominal Exam Abdominal exam: Present soft and normal bowel sounds Extremities Exam Extremities exam: Present normal inspection and full ROM Back Exam Back exam: Present normal inspection and full ROM Neurological Exam Neurological exam: Present alert, oriented X3 and CN II-XII intact Psychiatric Psychiatric exam: Present normal affect and normal mood Skin Skin exam: Present warm, dry, intact and normal color Course Quality Measures none Orders Category Date Time Status Consult to Obstetrics Stat Cons 04/15/25 04:00 Ordered US transvaginal Stat Exams 04/15/25 00:24 Taken CBC Stat Lab 04/15/25 01:22 Completed CMP [Comprehensive Metabolic Panel] Stat Lab 04/15/25 01:22 Completed Urinalysis, C/S if Indicated Stat Lab 04/15/25 01:04 Completed Azithromycin Po [Zithromax PO] Med 04/15/25 05:23 Discontinued 500 mg PO X1 ONE Ketorolac Inj [Toradol Inj] Med 04/15/25 05:30 Discontinued 30 mg IM X1 ONE cefTRIAXone [Rocephin] 1,000 mg Med 04/15/25 05:25 Discontinued Lidocaine 1% 20 ml [Xylocaine 1% 20 ML] 2.1 ml IM X1 Vital Signs Vital signs: Vital Signs Temperature 98.6 F 04/15/25 00:05 Pulse Rate 72 04/15/25 00:05 Respiratory Rate 20 04/15/25 00:05 Blood Pressure 119/76 04/15/25 00:05 Pulse Oximetry (%) 97 04/15/25 00:05 Oxygen Delivery Method Room Air 04/15/25 00:05 O2 at 97% on RA and WNLs Urogenital - Female MDM Narrative MDM Narrative:: 29F with no significant PMH presents to ED with 2 days of pelvic pain. Patient gave via vaginal delivery 2 days ago. Patient states bleeding has slowed down but she is still passing some clots. Possible dysuria, but doesn't feel like previous UTIs. Some constipation. Physical exam reveals well-appearing female. Patient is afebrile, calm, and alert. No leukocytosis or gross anemia. CMP unremarkable. UA contaminated but mostly blood. Telerad US read reveals heterogenous endometrium compatiable with infectious process VS retained POC. Spoke to Dr. Ortega, OB, who came to evaluate patient (see consult notes). She recommends empiric ABX given history of GC, as well as pain meds and to follow-up with OBGYN. Patient data External records reviewed:: [facility] previous records Clinical information provided by:: patient Social determinants that could affect healthcare access:: none Patient has the following chronic illnesses:: none How is presenting disease/condition affected by chronic disease/condition?: no chronic disease Evaluation data The following diagnostics were reviewed and interpreted by me:: lab results and radiology exam(s) Lab and/or radiology exams considered but not ordered:: ordered Interpretation Summary: above Medications / Prescriptions Medications or Prescriptions considered but not ordered:: ordered Medication administrations:: Medication Administration History Discontinued Medications Azithromycin (Azithromycin 250 Mg Tablet) 500 mg PO X1 ONE Stop: 04/15/25 05:24 Ceftriaxone Sodium 1,000 mg/ (Lidocaine HCl 2.1 ml) 0 mg IM X1 ONE Stop: 04/15/25 05:26 Ketorolac Tromethamine (Ketorolac Inj 30 Mg/Ml Vial) 30 mg IM X1 ONE Stop: 04/15/25 05:31 above Consultations Consultation(s) initiated? (list below): Yes Diagnosis Urogenital Female Differential Diagnosis: urinary tract infection, bacterial vaginosis, trichomoniasis, cervicitis, ovarian cyst, vaginitis, ruptured ovarian cyst, cyst of Bartholin's gland, cystitis, dysmenorrhea and other (retained POC, pelvic pain) Most likely diagnosis given after review of the tests above:: pelvic pain Admission Indicated Admission indicated?: not indicated Admission Request Was there a request for admission?: No Disposition Plan Disposition Plan: Discharge Discharge Attestation Discharge Attestation: The patient and all family members were given an opportunity to ask questions and understood the discharge instructions. Discharge instructions specifically effects, indications for sooner follow up or return to the emergency department, and the expected course of current diagnosis. Patient condition: Stable Discharge Plan Plan Patient Disposition: HOME (Self Care) Discharge Disposition comment: Stable Prescriptions/Referrals Prescriptions/Med Rec: New ibuprofen 800 mg tablet 800 mg PO Q8H PRN (Reason: pain) Qty: 30 0RF azithromycin 250 mg tablet 250 mg PO BID 10 Days Qty: 20 0RF No Action Vitamin 27 mg iron- 800 mcg tablet 1 tab PO QDAY Qty: 60 2RF Vitamin 27 mg iron- 0.8 mg Tablet 1 tab PO QDAY Referrals: Temporary Provider,ED [Physician] - In 1 week Problem List Clinical Impression: Pelvic pain Patient/Caregiver Discharge Instructions Education Materials: Pain After Childbirth Additional Instructions: Please follow-up with PCP/OBYGN within 24-48 hours and return immediately if symptoms worsen. Print Language: Bangladeshi Stand Alone Forms: Patient Portal Info Letter PA/SUPERVISOR MICROWAVE Supervising Physician PA/SUPERVISOR MICROWAVE Supervising Physician: Dr. Holley
[2025-04-15 01:19] LABS: Collection Type, Urine Clean Catch
[2025-04-15 01:26] LABS: Bilirubin,Urine Negative (Negative); Blood,Urine 3+ (Negative); Clarity,Urine Turbid (Clear/Hazy); Culture Indicated,Urine Contaminated; Glucose, Urine Negative (Negative); Ketones,Urine Negative (Negative); Leukocyte Esterase,Urine Positive (Negative); Nitrite,Urine Negative (Negative); PH,Urine 7.5 (5.0-7.0); Protein,Urine 1+ (Neg - Trace); RBC,Urine 1550 /hpf (0-3); Specific Gravity,Urine 1.016 (1.001-1.035); Squamous Epithelial Cell,Urine 13 /hpf (0-5); Urobilinogen,Urine Negative mg/dL (0.0-1.0); WBC,Urine 64 /hpf (0-5)
[2025-04-15 01:28] LABS: Color,Urine Yellow (Lt Yel-Yel)
[2025-04-15 01:47] LABS: Basophils # (Auto) 0.0 Thou/mm3 (0.0-0.2); Basophils % (Auto) 0 % (0-2.5); Eosinophils # (Auto) 0.2 Thou/mm3 (0.0-0.5); Eosinophils % (Auto) 2 % (0-10); Hematocrit 31.7 % (36.0-46.0); Hemoglobin 10.5 g/dL (12.0-16.0); Immature Granulocytes Auto 0.05 Thou/mm3 (0.00-0.00); Lymphocytes # (Auto) 2.2 Thou/mm3 (1.0-4.8); Lymphocytes % (Auto) 23 % (10-50); Mean Corpuscular HGB Conc 33.1 g/dl (31.0-37.0); Mean Corpuscular Hemoglobin 29.7 pg (25.0-35.0); Mean Corpuscular Volume 90 fL (80-100); Monocytes # (Auto) 0.7 Thou/mm3 (0.0-0.8); Monocytes % (Auto) 7 % (0-12); Neutrophils # (Auto) 6.5 Thou/mm3 (1.8-7.7); Neutrophils % (Auto) 68 % (37-80); Nucleated Red Blood Cell # 0.00 Thou/mm3 (0.00-0.00); Nucleated Red Blood Cell % 0 /100 WBC (0); Platelet Count 216 Thou/mm3 (140-440); RDW Standard Deviation 45.9 fL (36.4-46.3); Red Blood Count 3.53 Miln/mm3 (4.00-5.20); White Blood Count 9.6 Thou/mm3 (3.6-11.0)
[2025-04-15 02:05] LABS: Alanine Aminotransferase 17 U/L (10-49); Albumin, Serum 3.3 gm/dL (3.5-5.0); Albumin/Globulin Ratio 1.5 (1.2-2.2); Alkaline Phosphatase 133 U/L (46-116); Anion Gap 6 (7-16); Aspartate Amino Transferase 23 U/L (0-34); BUN/Creatinine Ratio 16 Ratio (12-20); Bilirubin,Total 0.2 mg/dL (0.3-1.2); Blood Urea Nitrogen 8 mg/dL (9-23); Calcium 8.5 mg/dL (8.3-10.6); Calcium (Corrected) 9.1 mg/dL (8.5-10.1); Carbon Dioxide 26.3 mMol/L (20.0-31.0); Chloride 107 mMol/L (98-107); Creatinine (Component) 0.5 mg/dL (0.6-1.3); Estimated Creatinine Clearance 169.1 mL/min (>60); Globulin 2.2 gm/dL (2.3-3.5); Glucose 89 mg/dL (74-106); Osmolality,Calculated 274 (275-295); Potassium 4.0 mMol/L (3.4-5.1); Sodium 139 mMol/L (136-145); Total Protein 5.5 gm/dL (5.7-8.2); eGFR > 60 See Note
--- NOTE | 2025-04-15 03:50 | PRELIM_ITS ---
Pelvic ultrasound (transvaginal) with Doppler. April 15, 2025 at 0226 hours Clinical history: Pelvic pain, just gave Technique: Real-time, grayscale, transvaginal pelvic ultrasound was performed using Duplex scanning including arterial inflow, venous outflow, color and spectral Doppler. Comparison: Ultrasound of April 12, 2025. Findings: No evidence of retained products of conception The uterus is normal in size measuring 17.8 x 11.3 x 11.0 cm. Heterogenous appearance of the uterus and cervix. The endometrium is thickened and heterogenous and measures 2.6 cm. The ovaries were not visualized. There is no adnexal mass. There is no free fluid on the submitted images. Impression: Thickened heterogenous endometrium and heterogenous appearance of the uterus at the lower segment/cervix. Findings are compatible with infectious process versus retained products of conception. The ovaries were not visualized, consider correlation with MRI if clinically indicated. Report Electronically Signed By: Vipul Merino 04/15/2025 3:49:54 AM [EST]
--- NOTE | 2025-04-15 05:11 | PD.GYNCONS ---
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 She was discharged home the next day on 04/13/25. She presents today reporting crampy pain. She is Armenian-speaking only and the entire physical exam and interview is conducted with a Armenian speaking RN in the ER. Patient denies fevers chills. She denies heavy bleeding. She denies any purulent discharge. Her perineal incision is healing per patient. She has not taken anything for the cramping pain she just states she did not know she could take anything breast-feeding. Of note during this she was treated for chlamydia and syphilis. Elizabeth Sampson noted perianal warts on her delivery note. A white count is unremarkable ,her CBC is normal and ultrasound is normal considering patient had a baby 2 days ago. The plan will be to give the patient IM Rocephin some Toradol and azithromycin. Send the patient home on azithromycin. Follow-up in clinic as needed. Of note per delivery note she only had a first-degree perineal laceration. cc:: cc: Review of Systems Review of Systems Narrative Review of Systems: No fevers, no chills, no nausea, no vomiting, no heavy vaginal bleeding, no purulent discharge no erythema of breast no pain where her perineal and repair was performed, no erythema of legs no pain in her thighs or lower calfs. She is rubbing her abdomen and stating she has crampy pain low in her abdomen. Urinalysis was only a Clean-catch and it is full of red cells and white cells. Meds Home Medications and Allergies Home Medications ?Medication ?Instructions ?Recorded ?Confirmed ?Type vitamins-iron fumarate 27 1 tab PO QDAY 10/29/18 04/12/25 History mg iron-folic acid 0.8 mg tablet ( Vitamin) Allergies Allergy/AdvReac Type Severity Reaction Status Date / Time No Known Allergies Allergy Verified 04/12/25 16:47 Exam - RUBBER BELT SPLICER Vital Signs Temp Pulse Resp BP Pulse Ox O2 Del Method 98.6 F 72 20 119/76 97 Room Air 04/15/25 00:05 04/15/25 00:05 04/15/25 00:05 04/15/25 00:05 04/15/25 00:05 04/15/25 00:05 Constitutional Constitutional: no acute distress Comments: Patient is resting comfortably in bed. She has no IV. She is wearing a sweatshirt underneath her hospital gown. She is alert and cooperative. She has make-up on. Routine Abdominal Exam Abdominal: Present soft and normoactive bowel sounds Comments: Fundus about 3 cm below her umbilicus nontender no rebound no guarding. Perineal exam is deferred. Additional findings Additional findings: Extremities show no significant edema. No erythema. RUBBER BELT SPLICER - Results Labs 04/15/25 01:22 04/15/25 01:22 Labs: Short CBC 04/15/25 Range/Units 01:22 WBC 9.6 D (3.6-11.0) Thou/mm3 Hgb 10.5 L (12.0-16.0) g/dL Hct 31.7 L (36.0-46.0) % Plt Count 216 (140-440) Thou/mm3 BMP 04/15/25 01:22 Sodium 139 Potassium 4.0 Chloride 107 Carbon Dioxide 26.3 BUN 8 L Creatinine 0.5 L Glucose 89 Calcium 8.5 Liver Function 04/15/25 Range/Units 01:22 Total Bilirubin 0.2 L (0.3-1.2) mg/dL AST 23 (0-34) U/L ALT 17 (10-49) U/L Alkaline Phosphatase 133 H (46-116) U/L Albumin 3.3 L (3.5-5.0) gm/dL Urine 04/15/25 Range/Units 01:04 Urine Color Yellow (Lt Yel-Yel) Urine Clarity Turbid A (Clear/Hazy) Urine pH 7.5 H (5.0-7.0) Ur Specific [place] 1.016 (1.001-1.035) Urine Protein 1+ A (Neg - Trace) Urine Glucose (UA) Negative (Negative) Imaging and Cardiology US - abdomen: Status: image reviewed by me Additional comments: Normal uterus no significant products of conception. Ultrasound not officially read yet. Assessment and Plan Assessment and plan (1) care following vaginal delivery: Status: Acute Assessment and plan: Told the patient she can take ibuprofen and Tylenol she could alternate to these two as they are both safe with . I will order an IM shot of Toradol prior to discharge. I explained her to her the baby was almost 9 pounds, it was her biggest baby yet, and her uterus needs to involute and she will have more cramping this time due to how big her baby was. (2) History of chlamydia infection: Status: Acute Assessment and plan: Will treat with Rocephin and azithromycin. Would prefer doxycycline but patient is breast-feeding and the pharmacy likely will not fill this. (3) History of syphilis: Status: Acute Additional Assessment & Plan Additional Plan: Follow-up in clinic in 1 week to see Elizabeth Sampson.
[2025-04-15] MEDS: cefTRIAXone 1,000 MG, LIDOCAINE 1% 20 ML 2.1 ML IM (05:39)
[2025-04-15] MEDS: KETOROLAC INJ 30 MG/ML VIAL IM (05:39)
[2025-04-15] MEDS: AZITHROMYCIN 250 MG TABLET 500 MG PO (05:40)
== END 2025-04-15 05:59 | disposition home or self-care (01) ==
PROVIDERS: Physician Assistant; Emergency Provider Emergency Medicine; PCP Family Medicine
DX: O99.893 Other specified diseases and conditions complicating puerperium (principal); R10.2 Pelvic and perineal pain
CPT/HCPCS: 36415; 76830; 80053; 81001; 85025; 96372; 99283; J0696; J1885; J3490; A9270